=== PATIENT | female | born 1990 | race African-American/Black ===

== ENCOUNTER 2016-06-10 09:59 | Emergency (ER) | payer MEDICAID, OTHER ==
[2016-06-10 10:28] VITALS: BP 138/71
== END 2016-06-10 15:15 | disposition left against medical advice (07) ==
LOC: ED 09:59
DX: R11.0 Nausea (principal); R19.7 Diarrhea, unspecified; Z53.21 Procedure and treatment not carried out due to patient leaving prior to being seen by health care provider

== ENCOUNTER 2016-06-19 12:02 | Emergency (ER) | payer OTHER ==
[2016-06-19] MEDS ORDERED: Ibuprofen TAB* 600 MG PO ONE (13:29)
--- NOTE | 2016-06-19 15:24 | ED ---
Shaq Musa Claudia, scribed for Shi Mueller MD on 06/19/16 at 1324 . Breast Complaint - HPI Summary HPI Summary: 26 year old female presents to the ED wiht palpable tender lump in her right breast. Pt notes it has progressively gotten larger and more painful in the past few months (about 2). Pt notes she did breast feed her daughter for about 3-4 weeks over a year ago. Pt denies any fever or redness. Pt notes the pain radiates to her right axilla. - History of Current Complaint Breast Chief Complaint: Right, Palpable Lump Onset/Duration: Started Weeks Ago, Still Present Timing: Constant Breast Pain Radiates To: Axilla - right - Allergy/Home Medications Allergies/Adverse Reactions: Allergies Allergy/AdvReac Type Severity Reaction Status Date / Time Fluconazole [From Diflucan] Allergy Intermediate Nausea And Verified 06/19/16 12 :11 Vomiting Metronidazole [From Flagyl] Allergy Intermediate Hives Verified 06/19/16 12:11 Bee Venom Allergy Swelling Verified 06/19/16 12:11 PMH/Surg Hx/FS Hx/Imm Hx Previously Healthy: Yes Endocrine/Hematology History: Reports: Hx Thyroid Disease, Hx Anemia Denies: Hx Anticoagulant Therapy, Hx Blood Disorders, Hx Blood Transfusions, Hx Diabetes Cardiovascular History: Denies: Hx Congestive Heart Failure, Hx Deep Vein Thrombosis, Hx Hypertension , Hx Myocardial Infarction, Hx Pacemaker/ICD Respiratory History: Reports: Hx Asthma - no inhaler use x1yr Denies: Hx Chronic Obstructive Pulmonary Disease (COPD), Hx Lung Cancer, Hx Pneumonia, Hx Pulmonary Embolism GI History: Denies: Hx Gall Bladder Disease, Hx Gastrointestinal Bleed, Hx Ulcer, Hx Urosepsis History: Denies: Hx Kidney Infection, Hx Kidney Stones, Hx Renal Disease, Other Problems/Disorders Sensory History: Reports: Hx Contacts or Glasses - uncorrected vision Opthamlomology History: Reports: Hx Contacts or Glasses - uncorrected vision Neurological History: Denies: Hx Dementia, Hx Migraine, Hx Seizures, Hx Transient Ischemic Attacks (TIA) Psychiatric History: Reports: Hx Anxiety, Hx Depression - On no medications for this. She has no suicidal or homicidal thoughts. Denies: Hx Panic Disorder, Hx Schizophrenia, Hx Bipolar Disorder, Other Psychiatric Issues/Disorders - Surgical History Surgery Procedure, Year, and Place: (2). polyps removed from uterus. RT BREAST BIOPSY - Immunization History Date of Tetanus Vaccine: up to date per pt. Infectious Disease History: No Infectious Disease History: Denies: Hx Clostridium Difficile, Hx Hepatitis, Hx Human Immunodeficiency Virus (HIV), Hx of Known/Suspected MRSA, Hx Shingles, Hx Tuberculosis, Hx Known/ Suspected VRE, Hx Known/Suspected VRSA, History Other Infectious Disease, Traveled Outside the [place] in Last 30 Days - Family History Known Family History: Positive: Hypertension, Diabetes Negative: Blood Disorder - Social History Lives: With Family Alcohol Use: None Hx Substance Use: No Substance Use Type: Reports: None Hx Tobacco Use: No Smoking Status (MU): Never Smoked Tobacco Have You Smoked in the Last Year: No Review of Systems Negative: Fever Eyes: Negative ENT: Negative Cardiovascular: Negative Respiratory: Negative Gastrointestinal: Negative Genitourinary: Negative Musculoskeletal: Negative Positive: Other - palpable lump in right breast Neurological: Negative Psychological: Normal All Other Systems Reviewed And Are Negative: Yes Physical Exam Triage Information Reviewed: Yes Vital Signs On Initial Exam: Initial Vitals Temp Pulse Resp BP Pulse Ox 98.1 F 90 18 125/83 98 06/19/16 12:08 06/19/16 12:08 06/19/16 12:08 06/19/16 12:08 06/19/16 12:08 Vital Signs Reviewed: Yes Appearance: Positive: Well-Appearing, No Pain Distress Skin: Positive: Warm, Skin Color Reflects Adequate Perfusion, Dry, Other - At 11o clock in right breast 2 cm in circumference lump that is more hard and tender to palpate Eyes: Positive: EOMI, KISHAN ENT: Positive: Pharynx normal, TMs normal Neck: Positive: Supple, Nontender Respiratory/Lung Sounds: Positive: Clear to Auscultation, Breath Sounds Present. Negative: Rales, Rhonchi, Wheezes Cardiovascular: Positive: RRR. Negative: Murmur, Rub Abdomen Description: Positive: Nontender, Soft Bowel Sounds: Positive: Present Musculoskeletal: Positive: Strength/ROM Intact. Negative: Edema Left, Edema Right Neurological: Positive: Sensory/Motor Intact, Alert, Oriented to Person Place, Time, CN Intact II-III Psychiatric: Positive: Affect/Mood Appropriate Diagnostics - Vital Signs Vital Signs Temp Pulse Resp BP Pulse Ox 06/19/16 12:08 98.1 F 90 18 125/83 98 - Laboratory Lab Statement: Any lab studies that have been ordered have been reviewed, and results considered in the medical decision making process. Breast Pain Course/Dx - Course Course Of Treatment: call from Dr. Bailey- solid mass in right breast. follow up with surgery for biopsy - Diagnoses Provider Diagnoses: Breast mass, right Discharge - Discharge Plan Condition: Stable Disposition: OTHER Discharge Disposition Comment: SIGNOUT A SHIFT CHANGE. Referrals: No Primary Care Phys,NOPCP [Primary Care Provider] - The documentation as recorded by the Shaq crespo Claudia accurately reflects the service I personally performed and the decisions made by me, Shi Mueller MD.
--- NOTE | 2016-06-19 15:26 | RAD ---
Indication: Mass in the right breast Real-time sonography of the right breast was performed. There is a bilobed solid lesion in the right breast at 9 to 10:00 position approximately 4 cm from the nipple. This measures 2.7 x 1.4 x 2.5 cm. Flow is noted. The margins of are slightly lobulated and biopsy of this lesion is suggested. IMPRESSION: Solid lobulated lesion at the 9 to 10:00 position for which biopsy is suggested. ACR BI-RADS: 4, suspicious Dr. Mueller was notified of the results at 1522 hours.
[2016-06-19 15:40] VITALS: BP 120/62
== END 2016-06-19 15:38 | disposition home or self-care (01) ==
LOC: ED 12:02
DX: N63 Unspecified lump in breast (principal)
CPT/HCPCS: 99282; A9270-GY

== ENCOUNTER 2016-07-19 11:17 | Day surgery (SDC) | payer OTHER ==
--- NOTE | 2016-07-14 17:44 | HP ---
ADMISSION HISTORY AND PHYSICAL: DATE OF ADMISSION: 07/19/16 ATTENDING SURGEON: Hussain Jacobo MD (FELIPE Mustafa dictating) PRESCRIPTION CLERK COMPLAINT: Right breast mass. HISTORY OF PRESENT ILLNESS: This is a 26-year-old generally healthy female who has a history of a right breast mass 2 years ago for which she underwent imaging and eventually a core biopsy, which was apparently benign. She states that the mass then disappeared. She is approximately 5 months and beginning about 3 months ago, noted return of a mass in the breast, which was now painful, particularly with movement and/or pressure. She also has noticed some green bloody discharge. She was nursing only for about a week and is not currently lactating. She underwent ultrasound on 06/22/16, which showed 3 hypoechoic masses in the right breast, the dominant one being at 10 o'clock position and corresponding to the palpable lump. There were 2 additional masses , each less than or equal to a centimeter in size, both at the 12 o'clock position, one of them 1 cm and the other 4 cm from the nipple. These have not been symptomatic. She was seen in the office by Dr. Jacobo on 07/01/16. By his exam, there was a dominant lesion in the 12 o'clock position, measuring approximately 2 x 2 cm that was irregular, lobular, mobile, and tender. There were no palpable masses in the left breast and there was no palpable lymphadenopathy in the axillary or supraclavicular regions. Fine- needle aspiration was performed of the dominant 10 o'clock right breast mass, which was returned as consistent with fibroadenoma. Dr. Jacobo has discussed with her the indications for surgery, the risks, benefits, and alternatives. She would like to proceed as scheduled with the excision of the right breast mass. There is a family history of breast cancer in a maternal aunt. PAST MEDICAL HISTORY: Anxiety and depression. No other significant active or past medical issues. PAST SURGICAL HISTORY: Includes x2 and excision or ablation of uterine polyps. CURRENT MEDICATIONS: Fluoxetine 40 mg once daily. ALLERGIES: DIFLUCAN and FLAGYL (one has caused hives, the other nausea and vomiting, the patient is unsure which side effects for which drug). FAMILY HISTORY: Negative for anesthesia problems, bleeding, or clotting disorders. SOCIAL HISTORY: The patient has 2 children. She denies use of tobacco. She drinks 2 alcoholic drinks per week and denies other recreational drug use. REVIEW OF SYSTEMS: General: No recent constitutional symptoms or acute illnesses. Cardiovascular: No chest pain, palpitations, history of hypertension , or heart murmur. Respiratory: No history of asthma, chronic cough, or shortness of breath. GI: No problems reported. : No problems reported. HEPATOLOGY PHYSICIAN : Pelvic exam and Pap smear done within the past month, reportedly normal. Otherwise per HPI. Endocrine: No diabetes or thyroid dysfunction. PHYSICAL EXAMINATION GENERAL: A well-nourished, obese female, in no acute distress. VITAL SIGNS: Height 61 inches, weight 160 pounds, and vital signs per nursing. SKIN: Warm and dry. No suspicious rashes or lesions. HEENT: Pupils equal and round, reactive. EOMs intact. No conjunctival pallor. Oropharynx: Mucous membranes moist. Teeth in good repair. No intraoral lesions. NECK: No lymphadenopathy, thyromegaly, or masses. No supraclavicular lymphadenopathy. LUNGS: Clear to auscultation. No wheezes. HEART: Regular rate and rhythm. No murmur. BREASTS: Exam by PA student confirms presence of a mass in the right breast corresponding to the imaging and consistent with fibroadenoma. No other palpable masses noted. ABDOMEN: Soft and nontender to palpation. No masses or organomegaly. GENITALIA: Not done. RECTUM: Not done. BACK: No spinous process or CVA tenderness. EXTREMITIES: No edema. NEUROLOGICAL: Grossly intact. IMPRESSION: Right breast mass. PLAN/RECOMMENDATIONS: Excision right breast mass. FELIPE MUSTAFA CC: [facility]; [facility]* [id number]/[facility] #: [id number] JERMAIN
[~2016-07-19 11:17] MED LIST: Buffered Lidocaine 1% SYR 3ML* 3 ML/SYR SYRINGE INTRADERM ONE; Famotidine IV* 10 MG/ML 2 ML (20 mg) IV ONE; Morphine INJ* 2 MG/ML 1 ML CARPUJECT IV PRN; PROCHLORPERAZINE INJ 5 MG/ML 2 ML VIAL IV PRN; fentaNYL* 50 MCG/ML 2 ML VIAL (100 MCG VIAL) IV PRN; oxyCODONE/Acetamin 5/325 MG* TAB PO PRN
[2016-07-19] MEDS ORDERED: Famotidine IV* 10 MG/ML 2 ML (20 mg) ONE (11:30)
[2016-07-19 11:39] LABS: Manual Entry Verification HAN0055; UR Preg Internal Control QC Line Present
[2016-07-19] MEDS ORDERED: KETAMINE HCL* 50 MG/ML 10 ML VIAL ONE (12:54)
[2016-07-19] MEDS ORDERED: Midazolam* 1 MG/ML 5 ML VIAL (5 MG) ONE (12:54)
[2016-07-19] MEDS ORDERED: fentaNYL* 50 MCG/ML 2 ML VIAL (100 MCG VIAL) ONE (12:54)
[2016-07-19] MEDS ORDERED: Lidocaine 1% INJ* 10 MG/ML 30 ML SDV ONE (13:47)
[2016-07-19] MEDS ORDERED: Bupivacaine 0.5% W/EPI SDV* 30 ML VIAL ONE (13:47)
[2016-07-19] MEDS ORDERED: Propofol* 10 MG/ML 20 ML BTL IV PUSH ONE (14:11)
[2016-07-19] MEDS ORDERED: Ketorolac INJ* 30 MG/ML 1 ML VIAL ONE (14:11)
[2016-07-19] MEDS ORDERED: Lidocaine 2% PF * 5 ML VIAL ONE (14:11)
[2016-07-19] MEDS ORDERED: Dexamethasone IV* 4 MG/ML 1 ML (4 MG) ONE (14:11)
[2016-07-19] MEDS ORDERED: Ondansetron INJ* 2 MG/ML VIAL ONE (14:11)
[2016-07-19 15:31] VITALS: BP 108/55
--- NOTE | 2016-07-22 04:18 | OP ---
DATE OF OPERATION: 07/19/16 - [facility] DATE OF : 89 SURGEON: Hussain Jacobo MD OYSTER SORTER: None. ANESTHESIOLOGIST: Villa Price MD ANESTHESIA: Local MAC. PRE-OP DIAGNOSIS: Right breast mass. POST-OP DIAGNOSIS: Right breast mass. OPERATIVE PROCEDURE: Excision of right breast mass. ESTIMATED BLOOD LOSS: Minimal. SPECIMEN: Right breast mass. COMPLICATIONS: None. COUNTS: Instrument, needle, and sponge counts were correct. DESCRIPTION OF PROCEDURE: The patient was brought to the operating room, placed on the table supine. Sequential compression devices were placed on both lower extremities. She was administered intravenous sedation. Her right breast and chest were prepped and draped in the usual sterile fashion. Time- out was performed. Local anesthetic was infiltrated into the right breast overlying the palpable mass in the upper right quadrant. A curvilinear incision was created and the subcutaneous tissues were divided. The breast mass was identified. It was elevated and dissected free using the cautery. Once the mass was completely excised, hemostasis was assured. The wound was closed in two layers with 3-0 Polysorb and subcutaneous tissues, 4-0 Monocryl for the skin in a running subcuticular fashion. Steri-Strips were applied. The patient tolerated the procedure well, was awakened and transferred to Recovery in stable condition. CC: [facility]; [facility] * [id number]/[facility] #: [id number] JERMAIN
== END 2016-07-19 15:56 | disposition home or self-care (01) ==
LOC: OR 11:17
PROVIDERS: ATTEND Surgery
DX: D24.1 Benign neoplasm of right breast (principal); J45.909 Unspecified asthma, uncomplicated
CPT/HCPCS: 81025; 88307; J1100; J1885; J2250; J2405; J2704; J3010

== ENCOUNTER 2016-08-16 09:18 | Emergency (ER) | payer OTHER ==
--- NOTE | 2016-08-16 10:51 | UC ---
Ear Complaint HPI - HPI Summary HPI Summary: ONSET OF RIGHT EAR PAIN YESTERDAY. TODAY HEARING IS MUTED. NO DRAINAGE. NO FEVER. ONSET OF NASAL CONGESTION TODAY. ALSO REQUESTING A TEST. TOOK 2 HOME TESTS - ONE WAS POS, ONE WAS NEG. IS ABOUT 6 DAYS LATE FOR MENSES. HAS BEEN HAVING UNPROTECTED SEX WITH HER PARTNER. JUST GAVE 01/21/16. - History of Current Complaint Chief Complaint: UCEar Stated Complaint: EAR PAIN Time Seen by Provider: 08/16/16 10:50 Hx Obtained From: Patient, Family/Constitutional Law Professor - MOM Hx Last Menstrual Period: end of june 2016 Onset/Duration: Gradual Onset, Lasting Hours, Still Present Severity Initially: Moderate Severity Currently: Moderate Pain Intensity: 8 Pain Scale Used: 0-10 Numeric Aggravating Factors: Nothing Alleviating Factors: Nothing Associated Signs/Symptoms: Positive: Hearing Loss, URI Symptoms. Negative: Discharge, Foreign Body Sensation, Trauma to Ear, Swelling @ - Allergies/Home Medications Allergies/Adverse Reactions: Allergies Allergy/AdvReac Type Severity Reaction Status Date / Time Fluconazole [From Diflucan] Allergy Intermediate Nausea And Verified 07/19/16 11 :51 Vomiting Metronidazole [From Flagyl] Allergy Intermediate Hives Verified 07/19/16 11:51 Bee Venom Allergy Swelling Verified 07/19/16 11:51 PMH/Surg Hx/FS Hx/Imm Hx Endocrine History Of: Reports: Thyroid Disease - no longer on med, resolved Denies: Diabetes, Hyperthyroidism, Hypothyroidism, Dyslipidemia Cardiovascular History Of: Denies: Cardiac Disorders, Hypertension, Pacemaker/ICD, Myocardial Infarction , Congestive Heart Failure, Atrial Fibrillation, Deep Vein Thrombosis, Bleeding Disorders Respiratory History Of: Reports: Asthma - prn med Denies: COPD, Bronchitis, Pneumonia, Pulmonary Embolism GI/ History Of: Denies: Gastroesophageal Reflux, Ulcer, Gastrointestinal Bleed, Gall Bladder Disease, Kidney Stones, Diverticulitis, Renal Disease, Urosepsis Neurological History Of: Denies: TIA, CVA, Dementia, Seizures, Migraine Psychological History Of: Reports: Anxiety - on med, Depression - on med Denies: Bipolar Disorder, Schizophrenia, Post Traumatic Stress Disorder Cancer History Of: Denies: Lung Cancer, Colorectal Cancer, Breast Cancer, Prostate Cancer, Cervical Cancer Other History Of: Negative For: HIV, Hepatitis B, Hepatitis C, Anticoagulant Therapy - Surgical History Surgical History: Yes Surgery Procedure, Year, and Place: x2, 2011, 2015 - [facility] [place]. polyps removed from uterus 2013 - [facility] [place]. RT BREAST BIOPSY 2014 - [facility] [place] - Family History Known Family History: Positive: Hypertension, Diabetes Negative: Blood Disorder - Social History Alcohol Use: None Alcohol Amount: one wine per week Substance Use Type: None Smoking Status (MU): Never Smoked Tobacco Have You Smoked in the Last Year: No - Immunization History Most Recent Influenza Vaccination: not this year Most Recent Tetanus Shot: tetanus is up to date per patient Most Recent Pneumonia Vaccination: never Review of Systems Constitutional: Negative ENT: Ear Ache, Nasal Discharge Respiratory: Negative Cardiovascular: Negative Gastrointestinal: Negative All Other Systems Reviewed And Are Negative: Yes Physical Exam Triage Information Reviewed: Yes Appearance: Well-Appearing, No Pain Distress, Well-Nourished Vital Signs: Initial Vital Signs Temp 98.5 F 08/16/16 10:00 Pulse 68 08/16/16 10:00 Resp 18 08/16/16 10:00 BP 135/78 08/16/16 10:00 Pulse Ox 99 08/16/16 10:00 Vital Signs Reviewed: Yes Eyes: Positive: Conjunctiva Clear ENT: Positive: Hearing grossly normal, Pharynx normal, Other: - RIGHT TM DULL, ERYTHEMATOUS. LEFT TM NORMAL Neck: Positive: Supple, Nontender, No Lymphadenopathy Respiratory Exam: Normal Cardiovascular Exam: Normal Abdomen Description: Positive: Soft Musculoskeletal: Positive: No Edema Neurological: Positive: Alert Psychological: Positive: Age Appropriate Behavior Skin: Negative: rashes Diagnostics - Laboratory Diagnostic Studies Completed/Ordered: urine dip unremarkable. urine hcg neg Ear Complaint Course/Dx - Course Course Of Treatment: COUNSELED PT ON SAFER SEX PRACTICES TO PREVENT UNWANTED . ADVISED HER TO FOLLOW-UP WITH OB-SOLUTION ANALYST TO DISCUSS CONTRACEPTIVE OPTIONS. - Differential Dx/Diagnosis Provider Diagnoses: RIGHT AOM Discharge - Discharge Plan Condition: Stable Disposition: HOME Prescriptions: Amoxicillin CAP* [Amoxicillin 500 MG CAP*] 1,000 mg PO Q12H #28 cap Patient Education Materials: Otitis Media (ED) Additional Instructions: FOLLOW-UP WITH FLEET COORDINATOR VARINDER TO DISCUSS CONTRACEPTIVE OPTIONS. IN THE MEANTIME YOU MUST USE A BARRIER METHOD OF CONTRACEPTION TO PREVENT UNWANTED . CALL THE NUMBER BELOW FOR ASSISTANCE IN ESTABLISHING WITH A PCP An additional resource available to assist in finding the appropriate physician for your health care needs is the [facility] ([facility]). You may contact them by calling [phone].
[2016-08-16 11:47] VITALS: BP 125/78
== END 2016-08-16 11:43 | disposition home or self-care (01) ==
LOC: UCEAST 09:18
DX: H66.91 Otitis media, unspecified, right ear (principal); J45.909 Unspecified asthma, uncomplicated; Z88.3 Allergy status to other anti-infective agents; Z91.030 Bee allergy status
CPT/HCPCS: 81003; 84702; 99212; G0463

== ENCOUNTER 2016-08-30 11:43 | Emergency (ER) | payer OTHER ==
--- NOTE | 2016-08-30 13:47 | UC ---
Abdominal Pain Female HPI - HPI Summary HPI Summary: PT HERE WITH 2 DAYS OF RLQ PAIN. NO NAUSEA, NO FEVER. APPETITE HAS BEEN A BIT DECREASED. ALSO IS - NOT SURE HOW FAR ALONG SHE IS YET BUT LMP WAS 06/07. WAS UNPLANNED. FIRST OB APPT NOT UNTIL MID SEPTEMBER. - History of Current Complaint Chief Complaint: UCAbdominalPain Stated Complaint: PAIN ON SIDE PREG Time Seen by Provider: 08/30/16 13:36 Hx Obtained From: Patient Hx Last Menstrual Period: 06/07 Onset/Duration: Sudden Onset, Lasting Days, Still Present Timing: Constant Severity Initially: Mild Severity Currently: Mild Pain Intensity: 8 Pain Scale Used: 0-10 Numeric Location: Discrete At: RLQ Radiates: No Character: Cramping, Sharp Aggravating Factor(s): Nothing Alleviating Factor(s): Nothing Associated Signs and Symptoms: Positive: Negative Allergies/Adverse Reactions: Allergies Allergy/AdvReac Type Severity Reaction Status Date / Time Fluconazole [From Diflucan] Allergy Intermediate Nausea And Verified 07/19/16 11 :51 Vomiting Metronidazole [From Flagyl] Allergy Intermediate Hives Verified 07/19/16 11:51 Bee Venom Allergy Swelling Verified 07/19/16 11:51 PMH/Surg Hx/FS Hx/Imm Hx Endocrine History Of: Reports: Thyroid Disease - no longer on med, resolved Denies: Diabetes, Hyperthyroidism, Hypothyroidism, Dyslipidemia Cardiovascular History Of: Denies: Cardiac Disorders, Hypertension, Pacemaker/ICD, Myocardial Infarction , Congestive Heart Failure, Atrial Fibrillation, Deep Vein Thrombosis, Bleeding Disorders Respiratory History Of: Reports: Asthma - prn med Denies: COPD, Bronchitis, Pneumonia, Pulmonary Embolism GI/ History Of: Denies: Gastroesophageal Reflux, Ulcer, Gastrointestinal Bleed, Gall Bladder Disease, Kidney Stones, Diverticulitis, Renal Disease, Urosepsis Neurological History Of: Denies: TIA, CVA, Dementia, Seizures, Migraine Psychological History Of: Reports: Anxiety - on med, Depression - on med Denies: Bipolar Disorder, Schizophrenia, Post Traumatic Stress Disorder Cancer History Of: Denies: Lung Cancer, Colorectal Cancer, Breast Cancer, Prostate Cancer, Cervical Cancer Other History Of: Negative For: HIV, Hepatitis B, Hepatitis C, Anticoagulant Therapy - Surgical History Surgical History: Yes Surgery Procedure, Year, and Place: x2, 2010, 2015 - [facility] [place]. polyps removed from uterus 2013 - [facility] [place]. RT BREAST BIOPSY 2014 [facility] [place] - Family History Known Family History: Positive: Hypertension, Diabetes Negative: Blood Disorder - Social History Alcohol Use: None Alcohol Amount: one wine per week Substance Use Type: None Smoking Status (MU): Never Smoked Tobacco Have You Smoked in the Last Year: No - Immunization History Most Recent Influenza Vaccination: not this year Most Recent Tetanus Shot: tetanus is up to date per patient Most Recent Pneumonia Vaccination: never Review of Systems Constitutional: Negative Skin: Negative Respiratory: Negative Cardiovascular: Negative Gastrointestinal: Abdominal Pain All Other Systems Reviewed And Are Negative: Yes Physical Exam Triage Information Reviewed: Yes Appearance: Well-Appearing, No Pain Distress, Well-Nourished Vital Signs: Initial Vital Signs Temp 98.2 F 08/30/16 12:10 Pulse 78 08/30/16 12:10 Resp 16 08/30/16 12:10 BP 128/76 08/30/16 12:10 Pulse Ox 100 08/30/16 12:10 Vital Signs Reviewed: Yes Eyes: Positive: Conjunctiva Clear ENT: Positive: Hearing grossly normal Neck: Positive: Supple Respiratory Exam: Normal Cardiovascular Exam: Normal Abdomen Description: Positive: Soft, Other: - MILDY TENDER RLQ. NO REBOUND, RIGIDITY OR GUARDING. NEG OBTURATOR. EQUIVOCAL PSOAS SIGN. Negative: CVA Tenderness (R), CVA Tenderness (L), Distended, Guarding Bowel Sounds: Positive: Present Musculoskeletal: Positive: No Edema Neurological: Positive: Alert Psychological: Positive: Age Appropriate Behavior Skin: Negative: rashes Diagnostics - Laboratory Diagnostic Studies Completed/Ordered: URINE DIP UNREMARKABLE Abd Pain Female Course/Dx - Course Course Of Treatment: [facility] APPT TOMORROW AT 6:30PM TO DISCUSS OPTIONS. US TODAY PENDING TO CONFIRM IUP AND ESTABLISH GESTATIONAL AGE. IF US WNL FOR PT PREFERS CAREFUL OBSERVATION FOR RLQ PAIN. SIGNED OUT TO DR. TAPIA AT 2:55PM. - Differential Dx/Diagnosis Provider Diagnoses: RLQ PAIN/ Discharge - Discharge Plan Condition: Stable Disposition: OTHER Discharge Disposition Comment: SIGNED OUT TO DR. TAPIA - CHANGE OF SHIFT Referrals: No Primary Care Phys,NOPCP [Primary Care Provider] -
--- NOTE | 2016-08-30 15:59 | RAD ---
Indication: 11 weeks gestation based on June 10, 2016 LMP however negative test 3 weeks ago. Positive test today. Comparison: No relevant prior exams available on the [facility] [place] [facility]. Technique: Transvaginal pelvic ultrasound. Report: 0.16 cm mean diameter cystic structure appears to be within the endometrial cavity rather than eccentric within the endometrium as seen with a typical gestational sac. No definite pole or yolk sac evident. No compelling decidual reaction. No significant free pelvic fluid. 3.4 x 2.3 x 2.2 cm RIGHT ovary with documented vascular flow is remarkable for a 1.8 x 1.7 x 1.5 cm mildly thick walled avascular cystic structure with some inward directed margins and a reticulated internal architecture pattern of low level echoes most consistent with an involuting hemorrhagic cyst or corpus luteum. 3.0 x 1.5 x 1.9 cm LEFT ovary with documented vascular flow is unremarkable. No visualized extra ovarian adnexal region lesions evident. IMPRESSION: No definitive intrauterine gestational sac documented. The noted cystic structure within the endometrium is nonspecific and may represent a pseudosac rather than a true gestational sac. Nonetheless there is no suspicious extra ovarian adnexal region lesion. As ectopic is not excluded in absence of a documented IUP close clinical, beta-HCG, and sonographic follow-up is suggested as clinically indicated.
[2016-08-30 16:35] VITALS: BP 121/75
== END 2016-08-30 17:29 ==
LOC: UCEAST 11:43
DX: O26.899 Other specified pregnancy related conditions, unspecified trimester (principal); R10.31 Right lower quadrant pain; J45.909 Unspecified asthma, uncomplicated; F41.8 Other specified anxiety disorders; Z88.1 Allergy status to other antibiotic agents
CPT/HCPCS: 76817; 81003; 84702; 99212; G0463

== ENCOUNTER 2016-08-30 18:21 | Emergency (ER) | payer OTHER ==
[2016-08-30 18:28] VITALS: BP 139/63
--- NOTE | 2016-08-30 22:12 | ED ---
Wilfred Musa Erika, scribed for Servando Rodriguez MD on 08/30/16 at 1950 . GI/ HPI - HPI Summary HPI Summary: Patient is a 26-year-old female presenting to the ED with a CC of abdominal pain. Patient reports she is , with LNMP 06/12/2016. She states yesterday, she developed spotting, which has resolved. Today, she has had an intermittent suprapubic pain, which is aggravated by palpation, as well as a separate abdominal cramping. Patient came from [facility] after they did an US that did not show anything. A1. Patient reports she spotted during her last . - History of Current Complaint Chief Complaint: EDOBProblems Time Seen by Provider: 08/30/16 18:37 Stated Complaint: ABD PAIN/ Hx Obtained From: Patient Onset/Duration: Started Hours Ago, Atraumatic, Still Present Timing: Intermittent Current Severity: Moderate Pain Intensity: 8 Location of Pain: Suprapubic Additional Signs & Symptoms: Positive: Vaginal Bleeding, - 1, - 4, Para - 2 Aggravating Factor(s): Palpation - Allergy/Home Medications Allergies/Adverse Reactions: Allergies Allergy/AdvReac Type Severity Reaction Status Date / Time Fluconazole [From Diflucan] Allergy Intermediate Nausea And Verified 07/19/16 11 :51 Vomiting Metronidazole [From Flagyl] Allergy Intermediate Hives Verified 07/19/16 11:51 Bee Venom Allergy Swelling Verified 07/19/16 11:51 PMH/Surg Hx/FS Hx/Imm Hx Endocrine/Hematology History: Reports: Hx Thyroid Disease - no longer on med, resolved, Hx Anemia - in past, resolved Denies: Hx Anticoagulant Therapy, Hx Blood Disorders, Hx Blood Transfusions, Hx Diabetes Cardiovascular History: Denies: Hx Congestive Heart Failure, Hx Deep Vein Thrombosis, Hx Hypertension , Hx Myocardial Infarction, Hx Pacemaker/ICD Respiratory History: Reports: Hx Asthma - prn med Denies: Hx Chronic Obstructive Pulmonary Disease (COPD), Hx Lung Cancer, Hx Pneumonia, Hx Pulmonary Embolism GI History: Denies: Hx Gall Bladder Disease, Hx Gastrointestinal Bleed, Hx Ulcer, Hx Urosepsis History: Denies: Hx Kidney Infection, Hx Kidney Stones, Hx Renal Disease, Other Problems/Disorders Sensory History: Reports: Hx Contacts or Glasses - glasses Denies: Hx Hearing Aid Opthamlomology History: Reports: Hx Contacts or Glasses - glasses Neurological History: Denies: Hx Dementia, Hx Migraine, Hx Seizures, Hx Transient Ischemic Attacks (TIA) Psychiatric History: Reports: Hx Anxiety - on med, Hx Depression - on med Denies: Hx Panic Disorder, Hx Schizophrenia, Hx Bipolar Disorder, Other Psychiatric Issues/Disorders - Surgical History Surgery Procedure, Year, and [place] [facility] [place] [facility] [place] [facility] [place] Anesthesia Reactions: Yes - vomiting during - Immunization History Date of Tetanus Vaccine: up to date per pt. Infectious Disease History: No Infectious Disease History: Denies: Hx Clostridium Difficile, Hx Hepatitis, Hx Human Immunodeficiency Virus (HIV), Hx of Known/Suspected MRSA, Hx Shingles, Hx Tuberculosis, Hx Known/ Suspected VRE, Hx Known/Suspected VRSA, History Other Infectious Disease, Traveled Outside the in Last 30 Days - Family History Known Family History: Positive: Hypertension, Diabetes Negative: Blood Disorder - Social History Alcohol Use: None Alcohol Amount: one wine per week Hx Substance Use: No Substance Use Type: Reports: None Hx Tobacco Use: No Smoking Status (MU): Never Smoked Tobacco Have You Smoked in the Last Year: No Review of Systems Negative: Fever Positive: Abdominal Pain Genitourinary: Other - spotting All Other Systems Reviewed And Are Negative: Yes Physical Exam Triage Information Reviewed: Yes Vital Signs On Initial Exam: Initial Vitals Temp Pulse Resp BP Pulse Ox 98.1 F 58 17 139/63 100 08/30/16 18:23 08/30/16 18:23 08/30/16 18:23 08/30/16 18:23 08/30/16 18:23 Vital Signs Reviewed: Yes Appearance: Positive: Well-Appearing, No Pain Distress Skin: Positive: Warm, Skin Color Reflects Adequate Perfusion, Dry Head/Face: Positive: Normal Head/Face Inspection Eyes: Positive: Normal ENT: Positive: Normal ENT inspection Neck: Positive: Supple, Nontender Respiratory/Lung Sounds: Positive: Clear to Auscultation, Breath Sounds Present Cardiovascular: Positive: Bradycardia - at 58 bpm on triage Abdomen Description: Positive: Nontender, Soft Bowel Sounds: Positive: Present Musculoskeletal: Positive: Normal Neurological: Positive: Normal Psychiatric: Positive: Affect/Mood Appropriate Diagnostics - Vital Signs Vital Signs Temp Pulse Resp BP Pulse Ox 08/30/16 18:27 98.4 F 66 17 139/63 100 08/30/16 18:23 98.1 F 58 17 139/63 100 - Laboratory Lab Results: Lab Results 08/30/16 08/30/16 Range/Units 19:23 19:23 Beta HCG, Quant 12790.00 mIU/mL Blood Type O Positive Lab Statement: Any lab studies that have been ordered have been reviewed, and results considered in the medical decision making process. Re-Evaluation - Re-Evaluation First Eval Re-Evaluation Time: 20:55 Comment: Discussed plan for follow up GIGU Course/Dx - Course Course Of Treatment: Ms. Lara's U'S revealed a sac in the uterus and a quantitative HCG of 17k. She needs to be F/U in 2 days for a repeat HCG to distinguish between a missed AB and IUP. - Diagnoses Provider Diagnoses: Threatened in first trimester - Physician Notifications Discussed Care Of Patient With: Dr. Powers ([facility]) at 20:48 - discussed plan of care Discharge - Discharge Plan Condition: Stable Disposition: HOME Patient Education Materials: Threatened Miscarriage (ED) Referrals: Chase Powers MD [Medical Doctor] - Additional Instructions: Please follow up with [facility]. The documentation as recorded by the Wilfred crespo Erika accurately reflects the service I personally performed and the decisions made by me, Servando Rodriguez MD.
== END 2016-08-30 21:34 | disposition home or self-care (01) ==
LOC: ED 18:21
DX: O20.0 Threatened abortion (principal); F32.9 Major depressive disorder, single episode, unspecified; F41.9 Anxiety disorder, unspecified; O26.891 Other specified pregnancy related conditions, first trimester; J45.909 Unspecified asthma, uncomplicated; O99.341 Other mental disorders complicating pregnancy, first trimester
CPT/HCPCS: 36415; 84702; 86900; 86901; 99282

== ENCOUNTER 2017-04-17 10:57 | Emergency (ER) | payer OTHER ==
[2017-04-17 12:56] LABS: Urine Bilirubin Negative (Negative); Urine Glucose Negative (Negative); Urine Nitrite Negative (Negative)
[2017-04-17 13:03] LABS: Hematocrit 39 % (35-47); Hemoglobin 13.2 g/dl (12.0-16.0); Mean Corpuscular HGB Conc 34 g/dl (31-36); Mean Corpuscular Hemoglobin 32 pg (27-31); Mean Corpuscular Volume 94 fL (80-97); Mean Platelet Volume 10 um3 (7.4-10.4); Red Blood Count 4.13 10^6/ul (4.0-5.4); Red Cell Distribution Width 14 % (10.5-15); White Blood Count 5.6 10^3/ul (3.5-10.8)
[2017-04-17 13:22] LABS: Albumin 3.9 g/dL (3.2-5.2); BUN/Creatinine Ratio 12.7 (8-20); Calcium 8.9 mg/dL (8.6-10.3); EGFR Non-African American 88.7 (>60); Globulin 3.2 g/dL (2-4); Potassium 4.1 mmol/L (3.5-5.0); Total Bilirubin 0.5 mg/dL (0.2-1.0); Total Protein 7.1 g/dL (6.4-8.9)
--- NOTE | 2017-04-17 14:08 | ED ---
- HPI Summary HPI Summary: Patient presents to the ED with vaginal bleeding x 2 days with clotting. She has taken a test today which was positive. LMP 6-7 weeks ago. . Patient is otherwise healthy. Associated dizziness and 1 episode of passing out 2 days ago. Denies chest pain or SOB. Denies history of anemia. She states she has been dehydrated as well. Mild abdominal cramping described as period cramps. Denies N/V/C/D. Denies other symptoms + vaginal discharge and is requesting GC/Ch[place] only. Declines other STD testing. Denies fevers, sweat or chills. - History of Current Complaint Chief Complaint: EDOBProblems Stated Complaint: /CRAMPS & BLEEDING Time Seen by Provider: 04/17/17 12:39 Hx Obtained From: Patient Chief Complaint: Concern for Embryonic Dem Onset/Duration: Started Days Ago Timing: Constant Severity: Mild Current Severity: Mild Pain Intensity: 6 Character: None Associated Signs and Symptoms: Positive: Vaginal Bleeding or Discharge - Assessment Hx Now: Yes SAB: 1 IEA: 1 Hx Hysterectomy: No - Additional Pertinent History Maternal Blood Type and Rh: O Positive - Allergies/Home Medications Allergies/Adverse Reactions: Allergies Allergy/AdvReac Type Severity Reaction Status Date / Time Fluconazole [From Diflucan] Allergy Intermediate Nausea And Verified 07/19/16 11 :51 Vomiting Metronidazole [From Flagyl] Allergy Intermediate Hives Verified 07/19/16 11:51 Bee Venom Allergy Swelling Verified 07/19/16 11:51 PMH/Surg Hx/FS Hx/Imm Hx Previously Healthy: Yes Endocrine/Hematology History: Reports: Hx Thyroid Disease - no longer on med, resolved, Hx Anemia - in past, resolved Denies: Hx Anticoagulant Therapy, Hx Blood Disorders, Hx Blood Transfusions, Hx Diabetes Cardiovascular History: Denies: Hx Congestive Heart Failure, Hx Deep Vein Thrombosis, Hx Hypertension , Hx Myocardial Infarction, Hx Pacemaker/ICD Respiratory History: Reports: Hx Asthma - prn med Denies: Hx Chronic Obstructive Pulmonary Disease (COPD), Hx Lung Cancer, Hx Pneumonia, Hx Pulmonary Embolism GI History: Denies: Hx Gall Bladder Disease, Hx Gastrointestinal Bleed, Hx Ulcer, Hx Urosepsis History: Denies: Hx Kidney Infection, Hx Kidney Stones, Hx Renal Disease, Other Problems/Disorders Sensory History: Reports: Hx Contacts or Glasses - glasses Denies: Hx Hearing Aid Opthamlomology History: Reports: Hx Contacts or Glasses - glasses Neurological History: Denies: Hx Dementia, Hx Migraine, Hx Seizures, Hx Transient Ischemic Attacks (TIA) Psychiatric History: Reports: Hx Anxiety - on med, Hx Depression - on med Denies: Hx Panic Disorder, Hx Schizophrenia, Hx Bipolar Disorder, Other Psychiatric Issues/Disorders - Surgical History Surgery Procedure, Year, and Place: x2, 2010, [place] [facility] [place]. polyps removed [place] uterus 2013 [facility] [place]. RT BREAST BIOPSY 2014 [facility] [place] Hx Anesthesia Reactions: Yes - vomiting during - Immunization History Date of Tetanus Vaccine: up to date per pt. Hx Pertussis Vaccination: No Immunizations Up to Date: Unable to Obtain/Confirm Infectious Disease History: No Infectious Disease History: Denies: Hx Clostridium Difficile, Hx Hepatitis, Hx Human Immunodeficiency Virus (HIV), Hx of Known/Suspected MRSA, Hx Shingles, Hx Tuberculosis, Hx Known/ Suspected VRE, Hx Known/Suspected VRSA, History Other Infectious Disease, Traveled Outside the in Last 30 Days - Family History Known Family History: Positive: Hypertension, Diabetes Negative: Blood Disorder - Social History Occupation: Unemployed Lives: With Family Alcohol Use: None Alcohol Amount: one wine per week Hx Substance Use: No Substance Use Type: Reports: None Hx Tobacco Use: No Smoking Status (MU): Never Smoked Tobacco Have You Smoked in the Last Year: No Review of Systems Constitutional: Negative Negative: Fever, Chills, Fatigue Eyes: Negative Cardiovascular: Negative Respiratory: Negative Positive: Abdominal Pain Positive: discharge Musculoskeletal: Negative Skin: Negative Psychological: Normal All Other Systems Reviewed And Are Negative: Yes Physical Exam - Physical Exam Triage Information Reviewed: Yes Vital Signs Reviewed: Yes Appearance: Positive: Well-Appearing, Well-Nourished Skin: Positive: Skin Color Reflects Adequate Perfusion Head/Face: Positive: Normal Head/Face Inspection Eyes: Positive: EOMI, KISHAN, Conjunctiva Clear Neck: Positive: Supple, No Lymphadenopathy Respiratory/Lung Sounds: Positive: Clear to Auscultation, Breath Sounds Present Cardiovascular: Positive: RRR, Pulses are Symmetrical in both Upper and Lower Extremities Abdomen Description: Positive: Soft Musculoskeletal: Positive: Normal, Strength/ROM Intact Neurological: Positive: Speech Normal Psychiatric: Positive: Normal, Affect/Mood Appropriate AVPU Assessment: Alert Diagnostics - Vital Signs Vital Signs Temp Pulse Resp BP Pulse Ox 04/17/17 11:01 98.1 F 58 18 127/61 99 - Laboratory Lab Results: Lab Results 04/17/17 04/17/17 04/17/17 Range/Units 12:35 12:55 12:55 WBC 5.6 (3.5-10.8) 10^3/ul RBC 4.13 (4.0-5.4) 10^6/ul Hgb 13.2 (12.0-16.0) g/dl Hct 39 (35-47) % MCV 94 (80-97) fL MCH 32 H (27-31) pg MCHC 34 (31-36) g/dl RDW 14 (10.5-15) % Plt Count 193 (150-450) 10^3/ul MPV 10 (7.4-10.4) um3 Neut % (Auto) 60.5 (38-83) % Lymph % (Auto) 29.2 (25-47) % [place] % (Auto) 7.8 (1-9) % Eos % (Auto) 1.6 (0-6) % Baso % (Auto) 0.9 (0-2) % Absolute Neuts (auto) 3.4 (1.5-7.7) 10^3/ul Absolute Lymphs (auto) 1.6 (1.0-4.8) 10^3/ul Absolute Monos (auto) 0.4 (0-0.8) 10^3/ul Absolute Eos (auto) 0.1 (0-0.6) 10^3/ul Absolute Basos (auto) 0.1 (0-0.2) 10^3/ul Absolute Nucleated RBC 0.01 10^3/ul Nucleated RBC % 0.2 INR (Anticoag Therapy) (0.89-1.11) Sodium 135 (133-145) mmol/L Potassium 4.1 (3.5-5.0) mmol/L Chloride 105 (101-111) mmol/L Carbon Dioxide 25 (22-32) mmol/L Anion Gap 5 (2-11) mmol/L BUN 10 (6-24) mg/dL Creatinine 0.79 (0.51-0.95) mg/dL Est GFR ( Amer) 114.0 (>60) Est GFR (Non-Af Amer) 88.7 (>60) BUN/Creatinine Ratio 12.7 (8-20) Glucose 97 (70-100) mg/dL Lactic Acid (0.5-2.0) mmol/L Calcium 8.9 (8.6-10.3) mg/dL Total Bilirubin 0.50 (0.2-1.0) mg/dL AST 14 (13-39) U/L ALT 10 (7-52) U/L Alkaline Phosphatase 52 (34-104) U/L Total Protein 7.1 (6.4-8.9) g/dL Albumin 3.9 (3.2-5.2) g/dL Globulin 3.2 (2-4) g/dL Albumin/Globulin Ratio 1.2 (1-3) Beta HCG, Quant 288.66 mIU/mL Urine Color Yellow Urine Appearance Clear Urine pH 6.0 (5-9) Ur Specific [place] 1.021 (1.010-1.030) Urine Protein Negative (Negative) Urine Ketones Negative (Negative) Urine Blood Negative (Negative) Urine Nitrate Negative (Negative) Urine Bilirubin Negative (Negative) Urine Urobilinogen Negative (Negative) Ur Leukocyte Esterase Negative (Negative) Urine Glucose Negative (Negative) Blood Type Antibody Screen 04/17/17 04/17/17 04/17/17 Range/Units 12:55 12:55 12:55 WBC (3.5-10.8) 10^3/ul RBC (4.0-5.4) 10^6/ul Hgb (12.0-16.0) g/dl Hct (35-47) % MCV (80-97) fL MCH (27-31) pg MCHC (31-36) g/dl RDW (10.5-15) % Plt Count (150-450) 10^3/ul MPV (7.4-10.4) um3 Neut % (Auto) (38-83) % Lymph % (Auto) (25-47) % [place] % (Auto) (1-9) % Eos % (Auto) (0-6) % Baso % (Auto) (0-2) % Absolute Neuts (auto) (1.5-7.7) 10^3/ul Absolute Lymphs (auto) (1.0-4.8) 10^3/ul Absolute Monos (auto) (0-0.8) 10^3/ul Absolute Eos (auto) (0-0.6) 10^3/ul Absolute Basos (auto) (0-0.2) 10^3/ul Absolute Nucleated RBC 10^3/ul Nucleated RBC % INR (Anticoag Therapy) 1.02 (0.89-1.11) Sodium (133-145) mmol/L Potassium (3.5-5.0) mmol/L Chloride (101-111) mmol/L Carbon Dioxide (22-32) mmol/L Anion Gap (2-11) mmol/L BUN (6-24) mg/dL Creatinine (0.51-0.95) mg/dL Est GFR ( Amer) (>60) Est GFR (Non-Af Amer) (>60) BUN/Creatinine Ratio (8-20) Glucose (70-100) mg/dL Lactic Acid 0.6 (0.5-2.0) mmol/L Calcium (8.6-10.3) mg/dL Total Bilirubin (0.2-1.0) mg/dL AST (13-39) U/L ALT (7-52) U/L Alkaline Phosphatase (34-104) U/L Total Protein (6.4-8.9) g/dL Albumin (3.2-5.2) g/dL Globulin (2-4) g/dL Albumin/Globulin Ratio (1-3) Beta HCG, Quant mIU/mL Urine Color Urine Appearance Urine pH (5-9) Ur Specific [place] (1.010-1.030) Urine Protein (Negative) Urine Ketones (Negative) Urine Blood (Negative) Urine Nitrate (Negative) Urine Bilirubin (Negative) Urine Urobilinogen (Negative) Ur Leukocyte Esterase (Negative) Urine Glucose (Negative) Blood Type O Positive Antibody Screen Negative Result Diagrams: 04/17/17 12:55 04/17/17 12:55 Lab Statement: Any lab studies that have been ordered have been reviewed, and results considered in the medical decision making process. Course/Dx - Course Course Of Treatment: Labs OK. Discussed with patient treatment options and reasons of bleeding and clotting. Beta HCG less than 250 which is low for 6-7 week . Coupled with blood clots, provider has discussed the possibility of a spontaneous vs. complications with . D/t low HCG, unable to visualize a viable fetus. GC./olivia sent and will call with results. Will not treat until results are obtained. She is to follow up with PCP and referral is given for OBGYN. She is given an iron supplement for any acute blood loss and fatigue associated. - Differential Diagnosis/HQI/PQRI: Intrauterine , /Embryonic Demise - Diagnoses Provider Diagnoses: Vaginal bleeding Discharge - Discharge Plan Condition: Stable Disposition: HOME Prescriptions: Iron-Vitamin C 65/125(Nf) [Vitron-C (NF)] 1 tab PO DAILY #15 tab Patient Education Materials: Dizziness (ED) Referrals: No Primary Care Phys,NOPCP [Primary Care Provider] - Obi Lam MD [Medical Doctor] - Additional Instructions: Please follow up with OBGYN for re-evaluation Call office today We will call with any positive results of the gonorrhea/chlamydia test Drink plenty of water Iron is prescribed to you - take as directed This may cause constipation, so drink plenty of water and supplement with SENNA (otc) as needed
[2017-04-17 14:27] VITALS: BP 121/65
== END 2017-04-17 14:29 | disposition home or self-care (01) ==
LOC: ED 10:57
DX: N93.9 Abnormal uterine and vaginal bleeding, unspecified (principal); E07.9 Disorder of thyroid, unspecified; D64.9 Anemia, unspecified
CPT/HCPCS: 36415; 80053; 81003; 83605; 84702; 85025; 85610; 86850; 86900; 86901; 87491; 87591; 99282

== ENCOUNTER 2017-04-25 04:35 | Emergency (ER) | payer SELFPAY ==
[2017-04-25] MEDS ORDERED: Morphine INJ* 4 MG/ML 1 ML CARPUJECT IV ONE (06:19)
[2017-04-25 06:57] LABS: Hematocrit 35 % (35-47); Hemoglobin 12.2 g/dl (12.0-16.0); Mean Corpuscular HGB Conc 35 g/dl (31-36); Mean Corpuscular Hemoglobin 32 pg (27-31); Mean Corpuscular Volume 93 fL (80-97); Mean Platelet Volume 9 um3 (7.4-10.4); Red Blood Count 3.79 10^6/ul (4.0-5.4); Red Cell Distribution Width 13 % (10.5-15)
[2017-04-25 07:03] LABS: Urine Bacteria Absent (Absent); Urine Bilirubin Negative (Negative); Urine Glucose Negative (Negative); Urine Nitrite Negative (Negative)
[2017-04-25 07:13] LABS: Albumin 3.7 g/dL (3.2-5.2); BUN/Creatinine Ratio 13.7 (8-20); Calcium 8.7 mg/dL (8.6-10.3); EGFR African American 124.9 (>60); EGFR Non-African American 97.1 (>60); Globulin 2.9 g/dL (2-4); Potassium 3.9 mmol/L (3.5-5.0); Total Bilirubin 0.5 mg/dL (0.2-1.0); Total Protein 6.6 g/dL (6.4-8.9)
--- NOTE | 2017-04-25 07:39 | ED ---
Jim Musa Benjamin, scribed for Jaya Frias MD on 04/25/17 at 0654 . GI/ HPI - HPI Summary HPI Summary: 27yo female BIBA EMS for vaginal cramping and bleeding. Cramping is mostly in RLQ. Pt is , although exact weeks of unknown. LMP was February. Pt has hx of ovarian cyst, uterine tumor (with removal operation), c- sections, and miscarriage x2 (2009 and November,). Pt also has hx of STI. Pt denies fever, or vaginal discharge. Unknown if pt has fever, but pt felt hot. Appendix is still intact. - History of Current Complaint Chief Complaint: EDOBProblems Stated Complaint: POSS MISCARRIAGE Hx Obtained From: Patient Hx Last Menstrual Period: 06/07 Timing: Constant Severity: Moderate Current Severity: Moderate Vaginal Bleeding Description: Bright Red Pain Intensity: 98 Location of Pain: RLQ Pain Characteristics: Cramping Pain Radiates to: Back Associated Signs and Symptoms: Positive: Back Pain. Negative: Dysuria Additional Signs & Symptoms: Positive: Vaginal Bleeding Aggravating Factor(s): Nothing Alleviating Factor(s): Nothing - Allergy/Home Medications Allergies/Adverse Reactions: Allergies Allergy/AdvReac Type Severity Reaction Status Date / Time Fluconazole [From Diflucan] Allergy Intermediate Nausea And Verified 07/19/16 11 :51 Vomiting Metronidazole [From Flagyl] Allergy Intermediate Hives Verified 07/19/16 11:51 Bee Venom Allergy Swelling Verified 07/19/16 11:51 PMH/Surg Hx/FS Hx/Imm Hx Endocrine/Hematology History: Reports: Hx Thyroid Disease - no longer on med, resolved, Hx Anemia - in past, resolved Denies: Hx Anticoagulant Therapy, Hx Blood Disorders, Hx Blood Transfusions, Hx Diabetes Cardiovascular History: Denies: Hx Congestive Heart Failure, Hx Deep Vein Thrombosis, Hx Hypertension , Hx Myocardial Infarction, Hx Pacemaker/ICD Respiratory History: Reports: Hx Asthma - prn med Denies: Hx Chronic Obstructive Pulmonary Disease (COPD), Hx Lung Cancer, Hx Pneumonia, Hx Pulmonary Embolism GI History: Denies: Hx Gall Bladder Disease, Hx Gastrointestinal Bleed, Hx Ulcer, Hx Urosepsis History: Denies: Hx Kidney Infection, Hx Kidney Stones, Hx Renal Disease, Other Problems/Disorders Sensory History: Reports: Hx Contacts or Glasses - glasses Denies: Hx Hearing Aid Opthamlomology History: Reports: Hx Contacts or Glasses - glasses Neurological History: Denies: Hx Dementia, Hx Migraine, Hx Seizures, Hx Transient Ischemic Attacks (TIA) Psychiatric History: Reports: Hx Anxiety - on med, Hx Depression - on med Denies: Hx Panic Disorder, Hx Schizophrenia, Hx Bipolar Disorder, Other Psychiatric Issues/Disorders - Surgical History Surgery Procedure, Year, and Place: x2, 2011, 2016 - [facility] [place]. polyps removed from uterus 2013 - [facility] [place]. RT BREAST BIOPSY 2014 - [facility] [place] Hx Anesthesia Reactions: Yes - vomiting during - Immunization History Date of Tetanus Vaccine: up to date per pt. Infectious Disease History: No Infectious Disease History: Denies: Hx Clostridium Difficile, Hx Hepatitis, Hx Human Immunodeficiency Virus (HIV), Hx of Known/Suspected MRSA, Hx Shingles, Hx Tuberculosis, Hx Known/ Suspected VRE, Hx Known/Suspected VRSA, History Other Infectious Disease, Traveled Outside the in Last 30 Days - Family History Known Family History: Positive: Hypertension, Diabetes Negative: Blood Disorder - Social History Occupation: Employed Full-time, Employed Part-time Lives: With Family Alcohol Use: Occasionally Alcohol Amount: one wine per week Hx Substance Use: No Substance Use Type: Reports: None Hx Tobacco Use: No Smoking Status (MU): Never Smoked Tobacco Have You Smoked in the Last Year: No Review of Systems Constitutional: Negative Eyes: Negative ENT: Negative Cardiovascular: Negative Respiratory: Negative Positive: Abdominal Pain - RLQ. Negative: Vomiting, Diarrhea, Nausea Positive: other - vaginal bleeding Musculoskeletal: Negative Skin: Negative Neurological: Negative Psychological: Normal All Other Systems Reviewed And Are Negative: Yes Physical Exam - Summary Physical Exam Summary: Appearance: Well-appearing, Well-nourished Skin: Warm Eyes: Normal ENT: Normal Neck: Supple, nontender Respiratory: Clear to auscultation Cardiovascular: Normal Abdomen: Soft. RLQ tenderness without rebound or guarding. Bowel: Present Musculoskeletal: Normal, Strength/ROM Intact Neurological: Normal, A&Ox3 Psychiatric: Normal Triage Information Reviewed: Yes Vital Signs On Initial Exam: Initial Vitals Temp Pulse Resp BP Pulse Ox 98.3 F 62 18 130/58 98 04/25/17 04:48 04/25/17 04:48 04/25/17 04:48 04/25/17 04:48 04/25/17 04:48 Vital Signs Reviewed: Yes - Derrick Coma Scale Coma Scale Total: 15 Diagnostics - Vital Signs Vital Signs Temp Pulse Resp BP Pulse Ox 04/25/17 04:48 98.3 F 62 18 130/58 98 - Laboratory Lab Results: Lab Results 04/25/17 04/25/17 04/25/17 Range/Units 06:43 06:43 06:43 WBC 9.0 (3.5-10.8) 10^3/ul RBC 3.79 L (4.0-5.4) 10^6/ul Hgb 12.2 (12.0-16.0) g/dl Hct 35 (35-47) % MCV 93 (80-97) fL MCH 32 H (27-31) pg MCHC 35 (31-36) g/dl RDW 13 (10.5-15) % Plt Count 208 (150-450) 10^3/ul MPV 9 (7.4-10.4) um3 Neut % (Auto) 79.3 (38-83) % Lymph % (Auto) 13.2 L (25-47) % [place] % (Auto) 5.4 (1-9) % Eos % (Auto) 0.9 (0-6) % Baso % (Auto) 1.2 (0-2) % Absolute Neuts (auto) 7.1 (1.5-7.7) 10^3/ul Absolute Lymphs (auto) 1.2 (1.0-4.8) 10^3/ul Absolute Monos (auto) 0.5 (0-0.8) 10^3/ul Absolute Eos (auto) 0.1 (0-0.6) 10^3/ul Absolute Basos (auto) 0.1 (0-0.2) 10^3/ul Absolute Nucleated RBC 0 10^3/ul Nucleated RBC % 0 INR (Anticoag Therapy) 0.98 (0.77-1.02) APTT 29.7 (26.0-36.3) seconds Sodium 133 (133-145) mmol/L Potassium 3.9 (3.5-5.0) mmol/L Chloride 106 (101-111) mmol/L Carbon Dioxide 21 L (22-32) mmol/L Anion Gap 6 (2-11) mmol/L BUN 10 (6-24) mg/dL Creatinine 0.73 (0.51-0.95) mg/dL Est GFR ( Amer) 124.9 (>60) Est GFR (Non-Af Amer) 97.1 (>60) BUN/Creatinine Ratio 13.7 (8-20) Glucose 110 H (70-100) mg/dL Calcium 8.7 (8.6-10.3) mg/dL Total Bilirubin 0.50 (0.2-1.0) mg/dL AST 13 (13-39) U/L ALT 9 (7-52) U/L Alkaline Phosphatase 54 (34-104) U/L Total Protein 6.6 (6.4-8.9) g/dL Albumin 3.7 (3.2-5.2) g/dL Globulin 2.9 (2-4) g/dL Albumin/Globulin Ratio 1.3 (1-3) Beta HCG, Quant Pending Urine Color Urine Appearance Urine pH (5-9) Ur Specific Tarzan (1.010-1.030) Urine Protein (Negative) Urine Ketones (Negative) Urine Blood (Negative) Urine Nitrate (Negative) Urine Bilirubin (Negative) Urine Urobilinogen (Negative) Ur Leukocyte Esterase (Negative) Urine WBC (Auto) (Absent) Urine RBC (Auto) (Absent) Ur Squamous Epith Cells (Absent) Urine Bacteria (Absent) Urine Glucose (Negative) Blood Type Antibody Screen 04/25/17 04/25/17 Range/Units 06:43 06:43 WBC (3.5-10.8) 10^3/ul RBC (4.0-5.4) 10^6/ul Hgb (12.0-16.0) g/dl Hct (35-47) % MCV (80-97) fL MCH (27-31) pg MCHC (31-36) g/dl RDW (10.5-15) % Plt Count (150-450) 10^3/ul MPV (7.4-10.4) um3 Neut % (Auto) (38-83) % Lymph % (Auto) (25-47) % [place] % (Auto) (1-9) % Eos % (Auto) (0-6) % Baso % (Auto) (0-2) % Absolute Neuts (auto) (1.5-7.7) 10^3/ul Absolute Lymphs (auto) (1.0-4.8) 10^3/ul Absolute Monos (auto) (0-0.8) 10^3/ul Absolute Eos (auto) (0-0.6) 10^3/ul Absolute Basos (auto) (0-0.2) 10^3/ul Absolute Nucleated RBC 10^3/ul Nucleated RBC % INR (Anticoag Therapy) (0.77-1.02) APTT (26.0-36.3) seconds Sodium (133-145) mmol/L Potassium (3.5-5.0) mmol/L Chloride (101-111) mmol/L Carbon Dioxide (22-32) mmol/L Anion Gap (2-11) mmol/L BUN (6-24) mg/dL Creatinine (0.51-0.95) mg/dL Est GFR ( Amer) (>60) Est GFR (Non-Af Amer) (>60) BUN/Creatinine Ratio (8-20) Glucose (70-100) mg/dL Calcium (8.6-10.3) mg/dL Total Bilirubin (0.2-1.0) mg/dL AST (13-39) U/L ALT (7-52) U/L Alkaline Phosphatase (34-104) U/L Total Protein (6.4-8.9) g/dL Albumin (3.2-5.2) g/dL Globulin (2-4) g/dL Albumin/Globulin Ratio (1-3) Beta HCG, Quant Urine Color Yellow Urine Appearance Clear Urine pH 5.0 (5-9) Ur Specific Tarzan 1.024 (1.010-1.030) Urine Protein Negative (Negative) Urine Ketones Negative (Negative) Urine Blood 3+ H (Negative) Urine Nitrate Negative (Negative) Urine Bilirubin Negative (Negative) Urine Urobilinogen Negative (Negative) Ur Leukocyte Esterase Negative (Negative) Urine WBC (Auto) Trace(0-5/hpf) (Absent) Urine RBC (Auto) Trace(0-2/hpf) (Absent) Ur Squamous Epith Cells Present H (Absent) Urine Bacteria Absent (Absent) Urine Glucose Negative (Negative) Blood Type O Positive Antibody Screen Negative Result Diagrams: 04/25/17 06:43 04/25/17 06:43 Lab Statement: Any lab studies that have been ordered have been reviewed, and results considered in the medical decision making process. GIGU Course/Dx - Course Assessment/Plan: pending transvaginal ultrasound, pt care signed out to AM attending Dr. Bacon - Diagnoses Provider Diagnoses: Vaginal bleeding Discharge - Discharge Plan Condition: Stable Disposition: OTHER Discharge Disposition Comment: pt care signed out to AM attending Dr. Bacon Referrals: No Primary Care Phys,NOPCP [Primary Care Provider] - The documentation as recorded by the Jim crespo Benjamin accurately reflects the service I personally performed and the decisions made by me, Jaya Frias MD.
--- NOTE | 2017-04-25 09:18 | RAD ---
HISTORY: Vaginal bleeding COMPARISONS: None relevant TECHNIQUE: Multiple transverse and longitudinal ultrasound images were obtained of the pelvis using grayscale, color Doppler, and spectral Doppler imaging using the endovaginal transducer. FINDINGS: UTERUS: The uterus measures 10.2 x 5.8 x 6.4 cm. The uterus is normal in shape, size, contour, and echotexture. ENDOMETRIUM: No intrauterine gestation is identified. The endometrium is thickened.. The endometrium measures 2.2 cm in thickness. CUL-DE-SAC: There is a small amount of simple fluid within the cul-de-sac. This may be physiologic in a reproductive age female. RIGHT OVARY: The right ovary measures 3.7 x 3.8 x 2.6 cm. Normal arterial and venous waveforms are identifiable within the ovary on spectral Doppler imaging. There is a minimally comminuted 1.6 cm cyst of the right ovary. LEFT OVARY: The left ovary is not clearly visualized. BLADDER: The bladder is not well visualized. OTHER: None IMPRESSION: 1. NO INTRAUTERINE GESTATION IS IDENTIFIED. THE DIFFERENTIAL INCLUDES EARLY INTRAUTERINE GESTATION, MISSED , OR ECTOPIC . RECOMMEND CORRELATION WITH SERIAL BETA-HCG LEVELS AND FOLLOW-UP IMAGING. 2. THICKENED ENDOMETRIUM. 3. SMALL AMOUNT OF FLUID WITHIN THE PELVIC CUL-DE-SAC. 4. MINIMALLY COMPLICATED RIGHT OVARIAN CYST. 5. THE LEFT OVARY IS NOT VISUALIZED. 6. NO SONOGRAPHIC FEATURES OF TORSION. PLEASE NOTE THAT PARTIAL OR INTERMITTENT TORSION MAY BE SONOGRAPHICALLY NORMAL.
[2017-04-25 10:04] LABS: TSH (Thyroid Stimulating Horm) 1.49 mcIU/mL (0.34-5.60)
[2017-04-25 10:11] VITALS: BP 118/62
--- NOTE | 2017-04-25 17:16 | ED ---
James Musa Angela, scribed for Adeel Bacon MD on 04/25/17 at 0736 . Progress - Progress Note Progress Note: This pt was signed out by Dr. Frias, pending disposition, awaiting US transvaginal. This pt is a 27 y/o female, currently , [place] [facility] [place] vaginal bleeding since 04/15. Pt is unsure of how many weeks far along she is. She does not have an ObGyn currently. LMP 7-8 weeks ago. Physical Exam: VITAL SIGNS: Reviewed. GENERAL: Patient is a well-developed and nourished female who is lying comfortable in the stretcher. Patient is not in any acute respiratory distress. HEAD AND FACE: Normocephalic and atraumatic. EYES: PERRLA, EOMI x 2, No injected conjunctiva. EARS: Hearing grossly intact. Ear canals and tympanic membranes are WNL. MOUTH: Oropharynx within normal limits. NECK: Supple, trachea is midline, no adenopathy, no JVD. CHEST: Symmetric, no tenderness at palpation LUNGS: Clear to auscultation bilaterally. No wheezing or crackles. CVS: RRR, S1 and S2 present, no murmurs or gallops appreciated. ABDOMEN: Soft, non tender. No signs of distention. Positive bowel sounds. No rebound no guarding, and no masses palpated. No abdominal bruit or pulsations. EXTREMITIES: FROM in all major joints, no edema, no cyanosis or clubbing. NEURO: Alert and oriented x 3. No acute neurological deficits. Speech is normal. SKIN: Dry and warm MILK BOTTLER: Female classified advertising supervisor is present during the examination. External genitalia: within normal limits. No rashes, lesions or ecchymosis. Speculum exam: Cervical Os is closed. Slight amount of blood in the vault. No CMTs. All cultures were collected and send to the lab. Pt was discharged to home in stable condition with a diagnosis of threatened miscarriage. - Results/Orders Results/Orders: US Transvaginal, per radiologist: IMPRESSION: 1. No intrauterine gestation is identified. The differential includes early intrauterine gestation, missed , or ectopic . Recommend correlation with serial beta-HCG levels and follow-up imaging. 2. Thickened endometrium. 3. Small amount of fluid within the pelvic cul-de-sac. 4. Minimally complicated right ovarian cyst. 5. The left ovary is not visualized. 6. No sonographic features of torsion. Please note that partial or intermittent torsion may be sonographically normal. ED physician has reviewed this radiology report and agrees. Re-Evaluation - Re-Evaluation First Eval Re-Evaluation Time: 07:20 Comment: Pt reports some cramping now with movement. Course/Dx - Course Course Of Treatment: This pt is a 27 y/o female, currently , presenting [place] [facility] [place]/o vaginal bleeding since 04/15. Pt is unsure of how many weeks far along she is. She does not have an ObGyn currently. LMP 7-8 weeks ago. This pt was signed out by Dr. Frias to follow up intravaginal ultrasound. Test results without any significant abnormalities except for beta HCG of 2,648. US transvaginal shows 1. No intrauterine gestation is identified. The differential includes early intrauterine gestation, missed , or ectopic . Recommend correlation with serial beta-HCG levels and follow-up imaging. 2. Thickened endometrium. 3. Small amount of fluid within the pelvic cul-de-sac. 4. Minimally complicated right ovarian cyst. 5. The left ovary is not visualized. 6. No sonographic features of torsion. Please note that partial or intermittent torsion may be sonographically normal. In the pelvic exam, she had minimal vaginal bleeding. Therefore, I discussed the case with Dr. Hughes, who recommends for the pt to be discharged home and follow up in her office in the next 2 days. She recommends for the pt to have a beta HCG before she goes to her office. She was instructed to return to the ED for increased vaginal bleeding or pain. Pt understands and agrees. Pt is hemodynamically stable, alert and oriented x3. Pt was discharged to home in stable condition with a diagnosis of threatened miscarriage. - Diagnoses Provider Diagnoses: Threatened miscarriage - Provider Notifications Discussed Care Of Patient With: Liza Hughes Time Discussed With Above Provider: 09:25 Instructed by Provider To: Other - I discussed pt care with Dr. Hughes. She recommends to discharge the pt and follow up with he in her office in the next 48 hours. The documentation as recorded by the James crespo Angela accurately reflects the service I personally performed and the decisions made by me, Adeel Bacon MD.
== END 2017-04-25 10:22 | disposition home or self-care (01) ==
LOC: ED 04:35
DX: N93.9 Abnormal uterine and vaginal bleeding, unspecified (principal); R10.31 Right lower quadrant pain; N83.201 Unspecified ovarian cyst, right side; Z32.00 Encounter for pregnancy test, result unknown; F41.9 Anxiety disorder, unspecified; F39 Unspecified mood [affective] disorder; Z88.1 Allergy status to other antibiotic agents
CPT/HCPCS: 36415; 76817; 80053; 81003; 81015; 83605; 84443; 84702; 85025; 85610; 85730; 86850; 86900; 86901

== ENCOUNTER 2017-04-29 09:28 | Day surgery (SDC) | payer SELFPAY ==
[2017-04-29] MEDS ORDERED: Famotidine IV* 10 MG/ML 2 ML (20 mg) IV ONE (10:10)
[2017-04-29] MEDS ORDERED: Metoclopramide TAB* 10 MG PO ONE (10:10)
[2017-04-29] MEDS ORDERED: Buffered Lidocaine 0.9% SYRIN* 5 ML/SYR SYRINGE INTRADERM ONE (10:10)
[2017-04-29] MEDS ORDERED: Metoclopramide TAB* 10 MG ONE (10:18)
[2017-04-29] MEDS ORDERED: Famotidine IV* 10 MG/ML 2 ML (20 mg) ONE (10:18)
[2017-04-29 10:27] LABS: Hematocrit 35 % (35-47); Hemoglobin 12.3 g/dl (12.0-16.0); Mean Corpuscular HGB Conc 35 g/dl (31-36); Mean Corpuscular Hemoglobin 33 pg (27-31); Mean Corpuscular Volume 94 fL (80-97); Mean Platelet Volume 9 um3 (7.4-10.4); Red Blood Count 3.73 10^6/ul (4.0-5.4); Red Cell Distribution Width 13 % (10.5-15); White Blood Count 6.9 10^3/ul (3.5-10.8)
[2017-04-29] MEDS ORDERED: Ondansetron INJ* 2 MG/ML VIAL ONE (11:21)
[2017-04-29] MEDS ORDERED: Cisatracurium* 2 MG/ML MDV 5 ML ONE (11:21)
[2017-04-29] MEDS ORDERED: KETAMINE HCL* 50 MG/ML 10 ML VIAL ONE (11:21)
[2017-04-29] MEDS ORDERED: Midazolam* 1 MG/ML 10 ML VIAL (10 MG) ONE (11:21)
[2017-04-29] MEDS ORDERED: fentaNYL* 50 MCG/ML 2 ML VIAL (100 MCG VIAL) ONE (11:21)
[2017-04-29] MEDS ORDERED: Dexamethasone IV* 4 MG/ML 1 ML (4 MG) ONE (11:21)
[2017-04-29] MEDS ORDERED: Ketorolac INJ* 30 MG/ML 1 ML VIAL ONE (11:21)
[2017-04-29] MEDS ORDERED: Lidocaine 2% PF * 5 ML VIAL ONE (11:21)
[2017-04-29] MEDS ORDERED: Propofol* 10 MG/ML 20 ML BTL IV PUSH ONE (11:21)
[2017-04-29] MEDS ORDERED: Bupivacaine 0.5% SDV PF* 30 ML VIAL ONE (12:09)
[2017-04-29] MEDS ORDERED: Neostigmine Methylsulfate* 2 MG/2 ML SYRINGE ONE (12:33)
[2017-04-29] MEDS ORDERED: Glycopyrrolate IV* 0.2 MG/ML 1 ML VIAL ONE (12:33)
[2017-04-29] MEDS ORDERED: Levalbuterol 1.25MG/0.5ML NEB ONE (12:53)
[2017-04-29] MEDS ORDERED: oxyCODONE/Acetamin 5/325 MG* TAB PO PRN (13:26)
[2017-04-29] MEDS ORDERED: Levalbuterol 0.63MG/3ML NEB* UNIT OF USE INH PRN (13:26)
[2017-04-29] MEDS ORDERED: Ondansetron INJ* 2 MG/ML VIAL IV PRN (13:26)
[2017-04-29] MEDS ORDERED: fentaNYL* 50 MCG/ML 2 ML VIAL (100 MCG VIAL) IV PRN (13:26)
[2017-04-29 14:16] VITALS: BP 110/55
--- NOTE | 2017-04-30 00:53 | OP ---
CC: Dr. Chase Powers.* DATE OF OPERATION: 04/29/17 - [facility] DATE OF : 89 SURGEON: Obi Lam MD JEWEL BEARING GRINDER: Dr. Chase Powers. ANESTHESIOLOGIST: Chinedu Wu MD ANESTHESIA: General endotracheal tube. PRE-OP DIAGNOSIS: Right ectopic . POST-OP DIAGNOSIS: Right ectopic . OPERATIVE PROCEDURE: FINDINGS: On laparoscopy, the anterior bladder flap appeared normal. The cul- de- sac contained about 100 cc of blood. There was a right ectopic in the right fallopian tube in the isthmic portion with clot coming out of the fimbriated ends. The right ovary appeared normal. The left tube and ovary appeared normal. Liver surface was smooth. There was an omental adhesion to the anterior abdominal wall. COMPLICATIONS: None. ESTIMATED BLOOD LOSS: Minimal. DESCRIPTION OF PROCEDURE: The patient identified, procedure identified as a laparoscopy. The patient was taken to the operating room and was prepped and draped in the usual fashion in dorsal lithotomy position under general anesthesia. A small infraumbilical incision was made and a Veress needle was inserted through this. The abdomen was insufflated to 15 mmHg. The Veress needle was removed and the trocar was inserted with a Visiport under direct visualization. The above findings were noted. Trocar was removed from the sheath and laparoscope was inserted and the above findings were noted. A second trocar was inserted on the right abdominal side wall, 8 cm lateral to the umbilicus under direct visualization. The LigaSure was inserted through this and the omental adhesion was lysed. A third trocar was placed on the left abdominal side wall approximately 8 cm lateral to the umbilicus and a trocar was inserted under direct visualization. Copious irrigation was utilized and suctioned out. The right fallopian was grasped. The LigaSure was used to ligate and incise the mesosalpinx from the level of the fimbriated end all the way up to within a couple of centimeters of the cornual portion of the fallopian tube on that side excising the right ectopic completely along with the fallopian tube. EndoCatch bag was placed into the abdomen and the specimen was placed within the bag and this was brought out through the umbilical incision without difficulty. The trocar was re-inserted and the abdomen was inspected and copiously irrigated and suctioned out. Good hemostasis was verified in the sites. All instruments were removed from the abdomen. The abdomen was deflated of CO2. The umbilicus was then closed using 2-0 Polysorb in a simple fashion through the deep part of the incision and then the skin was closed using skin glue in all sites. Good hemostasis was verified. Sponge and sponge stick were removed from the vagina and the patient returned to recovery room in stable condition. [id number]/[facility] #: [id number] JERMAIN
== END 2017-04-29 14:43 | disposition home or self-care (01) ==
LOC: OR 09:28
PROVIDERS: ATTEND Obstetrics & Gynecology
DX: O00.101 Right tubal pregnancy without intrauterine pregnancy (principal); N93.9 Abnormal uterine and vaginal bleeding, unspecified; J45.909 Unspecified asthma, uncomplicated; F41.8 Other specified anxiety disorders; D64.9 Anemia, unspecified; N63.10 Unspecified lump in the right breast, unspecified quadrant
CPT/HCPCS: 36415; 85025; 86850; 86900; 86901; 88305; A9270-GY; J1100; J1885; J2250; J2405; J2704; J3010

== ENCOUNTER 2017-05-16 11:02 | Emergency (ER) | payer SELFPAY ==
[2017-05-16 13:13] VITALS: BP 114/79
== END 2017-05-16 14:22 | disposition left against medical advice (07) ==
LOC: ED 11:02
DX: R10.9 Unspecified abdominal pain (principal); Z53.21 Procedure and treatment not carried out due to patient leaving prior to being seen by health care provider
CPT/HCPCS: 99282

== ENCOUNTER 2017-05-21 15:51 | Emergency (ER) | payer SELFPAY ==
[2017-05-21 16:10] VITALS: BP 111/67
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
== END 2017-05-21 18:05 | disposition home or self-care (01) ==
LOC: UCEAST 15:51
DX: N89.8 Other specified noninflammatory disorders of vagina (principal); Z90.79 Acquired absence of other genital organ(s); Z88.1 Allergy status to other antibiotic agents; Z91.030 Bee allergy status
CPT/HCPCS: 81003; 87480; 87491; 87510; 87591; 87661; 99211; G0463

== ENCOUNTER 2017-05-22 15:55 | Emergency (ER) | payer SELFPAY ==
[2017-05-22 16:31] VITALS: BP 129/71
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
== END 2017-05-22 17:10 | disposition short-term general hospital (02) ==
LOC: UCEAST 15:55
DX: S09.90XA Unspecified injury of head, initial encounter (principal); S19.9XXA Unspecified injury of neck, initial encounter; S29.9XXA Unspecified injury of thorax, initial encounter; Y04.2XXA Assault by strike against or bumped into by another person, initial encounter; Y93.9 Activity, unspecified; Y92.511 Restaurant or cafe as the place of occurrence of the external cause; R11.0 Nausea; E66.9 Obesity, unspecified; Z88.1 Allergy status to other antibiotic agents
CPT/HCPCS: 99213; G0463

== ENCOUNTER 2017-05-22 17:30 | Emergency (ER) | payer SELFPAY ==
[2017-05-22] MEDS ORDERED: Acetaminophen TAB* 325 MG PO ONE (18:16)
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
[2017-05-22 19:19] VITALS: BP 126/68
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
[2017-05-22] MEDS ORDERED: Ibuprofen TAB* 800 MG PO ONE (19:32)
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
== END 2017-05-22 20:42 | disposition home or self-care (01) ==
LOC: ED 17:30
DX: S06.0X9A Concussion with loss of consciousness of unspecified duration, initial encounter (principal); S00.93XA Contusion of unspecified part of head, initial encounter; S43.401A Unspecified sprain of right shoulder joint, initial encounter; Y09 Assault by unspecified means; Y92.89 Other specified places as the place of occurrence of the external cause
CPT/HCPCS: 70450; 70486; 72100; 72125; 99282; A9270-GY

== ENCOUNTER 2017-10-13 15:34 | Emergency (ER) | payer OTHER ==
[2017-10-13 16:53] VITALS: BP 103/65
--- NOTE | 2017-10-13 18:03 | UC ---
Lower Extremity/Ankle HPI - HPI Summary HPI Summary: Patient is a 27-year-old female presenting to the with chief complaint of left ankle pain. She does not recall injuring the area. She endorses swelling to the area without ecchymosis. Endorses numbness and tingling in the ipsilateral foot which was worse this morning. Has been taking ibuprofen without relief. Denies any knee pain or pain to the toes. Pulses +2 intact bilaterally both pedally and posterior tibial. She is otherwise healthy and takes no medications. She is ambulating well, but with pain. - History of Current Complaint Chief Complaint: UCLowerExtremity Stated Complaint: FOOT INJURY Time Seen by Provider: 10/13/17 16:59 Hx Obtained From: Patient Hx Last Menstrual Period: 10/13/2017 ?: No Onset/Duration: Sudden Onset Severity Initially: Mild Severity Currently: Mild Pain Intensity: 6 Pain Scale Used: 0-10 Numeric Aggravating Factor(s): Standing, Ambulation Alleviating Factor(s): Rest Able to Bear Weight: Yes - Risk Factors Gout Risk Factors: Negative DVT Risk Factors: Negative Septic Arthritis Risk Factor: Negative - Allergies/Home Medications Allergies/Adverse Reactions: Allergies Allergy/AdvReac Type Severity Reaction Status Date / Time fluconazole [From Diflucan] Allergy Vomiting Verified 10/13/17 16:53 Latex, Natural Rubber Allergy Itching Verified 08/28/17 18:36 metronidazole [From Flagyl] Allergy Hives Verified 10/13/17 16:53 Home Medications: Home Medications Ibuprofen [Advil] 200 mg PO 10/13/17 [History] PMH/Surg Hx/FS Hx/Imm Hx Previously Healthy: Yes Other History Of: Negative For: HIV, Hepatitis B, Hepatitis C, Anticoagulant Therapy - Surgical History Surgical History: Yes Surgery Procedure, Year, and Place: x2, 2010, [place] - [facility] [place]. polyps removed from uterus 2013 - [facility] [place]. RT BREAST BIOPSY 2014 [facility] [place]. ECTOPIC pregnmancy, removed Apr 2017 - Family History Known Family History: Positive: Hypertension, Diabetes Negative: Blood Disorder - Social History Occupation: Employed Full-time Lives: With Family Alcohol Use: Rare Alcohol Amount: one wine per week Substance Use Type: None Smoking Status (MU): Never Smoked Tobacco Have You Smoked in the Last Year: No - Immunization History Most Recent Influenza Vaccination: not this year Most Recent Tetanus Shot: tetanus is up to date per patient Most Recent Pneumonia Vaccination: never Review of Systems Constitutional: Negative Skin: Negative Respiratory: Negative Cardiovascular: Negative Motor: Decreased ROM - d/t pain Neurovascular: Negative Musculoskeletal: Arthralgia - with swelling Neurological: Negative Is Patient Immunocompromised?: No All Other Systems Reviewed And Are Negative: Yes Physical Exam Triage Information Reviewed: Yes Appearance: Well-Appearing, No Pain Distress, Well-Nourished Vital Signs: Initial Vital Signs Temp 98.4 F 10/13/17 16:46 Pulse 57 10/13/17 16:46 Resp 16 10/13/17 16:46 BP 103/65 10/13/17 16:46 Pulse Ox 100 10/13/17 16:46 Vital Signs Reviewed: Yes Eye Exam: Normal Neck exam: Normal Neck: Positive: Supple, No Lymphadenopathy Respiratory Exam: Normal Respiratory: Positive: Chest non-tender, Lungs clear Cardiovascular Exam: Normal Cardiovascular: Positive: RRR Musculoskeletal: Positive: Strength Limited @ - left plantar flexion Neurological Exam: Normal Neurological: Positive: Alert Psychological: Positive: Normal Response To Family Skin Exam: Normal Lower Extremity Course/Dx - Course Course Of Treatment: During the course of treatment, the patient's evaluated for left ankle pain. Denies any known injury. X-ray obtained of the ankle. There is slight swelling just inferior to the lateral malleolus without ecchymosis. X-ray obtained which shows some lateral soft tissue swelling with no additional findings. I have Aron wrapped the area and encouraged swelling and ice. - Differential Dx/Diagnosis Differential Diagnosis/HQI/PQRI: Sprain, Strain, Tendonitis Provider Diagnoses: left ankle swelling Discharge - Sign-Out/Discharge Documenting (check all that apply): Discharge/Admit/Transfer - Discharge Plan Condition: Stable Disposition: HOME Patient Education Materials: Swollen Joint (ED) Referrals: Jl Malone MD [Medical Doctor] - No Primary Care Phys,NOPCP [Primary Care Provider] - Additional Instructions: Ibuprofen 600mg three times daily Elevate Keep the area bandaged for pain control Follow up with ortho if symptoms persist despite these practices - Billing Disposition and Condition Condition: STABLE Disposition: HOME
--- NOTE | 2017-10-13 18:09 | RAD ---
Indication: Posterior and lateral LEFT ankle pain for 3 days. Associated numbness. No preceding injury. Comparison: No relevant prior exams available on the [facility] [place] PACS. Technique: AP, mortise, and lateral views LEFT ankle. REPORT AND IMPRESSION: Normal articular alignment. Negative for fracture or osteochondral lesion. Preserved joint spaces. Mild lateral soft tissue swelling.
== END 2017-10-13 18:22 | disposition home or self-care (01) ==
LOC: UCEAST 15:34
DX: M25.472 Effusion, left ankle (principal); M25.572 Pain in left ankle and joints of left foot; R20.0 Anesthesia of skin; Z88.1 Allergy status to other antibiotic agents; Z91.040 Latex allergy status
CPT/HCPCS: 99211; G0463

== ENCOUNTER 2017-11-17 17:15 | Emergency (ER) | payer OTHER ==
--- NOTE | 2017-11-17 17:25 | UC ---
Throat Pain/Nasal Bill HPI - HPI Summary HPI Summary: 27 yo female presents with sore throat, generalized fatigue, and feeling hot and cold since yesterday. She tells me that her daughter was diagnosed with strep throat a few days ago. Pt thinks she may have it. Is able to eat and drink , but does have pain. Denies cough, SOB, chest pain, n/v, or rash. - History of Current Complaint Hx Obtained From: Patient Hx Last Menstrual Period: 10/13/2017 Onset/Duration: Gradual Onset Severity: Moderate Pain Intensity: 8 Pain Scale Used: 0-10 Numeric <Todd Huerta - Last Filed: 11/17/17 18:16> <Noe Clark - Last Filed: 11/17/17 18:36> - History of Current Complaint Stated Complaint: SORE THROAT Time Seen by Provider: 11/17/17 17:24 - Allergies/Home Medications Allergies/Adverse Reactions: Allergies Allergy/AdvReac Type Severity Reaction Status Date / Time fluconazole [From Diflucan] Allergy Vomiting Verified 11/17/17 17:24 Latex, Natural Rubber Allergy Itching Verified 11/17/17 17:24 metronidazole [From Flagyl] Allergy Hives Verified 11/17/17 17:24 PMH/Surg Hx/FS Hx/Imm Hx - Additional Past Medical History Additional PMH: None Other History Of: Negative For: HIV, Hepatitis B, Hepatitis C, Anticoagulant Therapy - Surgical History Surgical History: Yes Surgery Procedure, Year, and Place: x2, 2010, [place] [facility] [place] uterus 2013 - [facility] [place]. RT BREAST BIOPSY 2014 - [facility] [place]. ECTOPIC pregnmancy, removed Apr 2017 - Family History Known Family History: Positive: Hypertension, Diabetes Negative: Blood Disorder - Social History Occupation: Employed Full-time Lives: With Family Alcohol Use: Rare Alcohol Amount: one wine per week Substance Use Type: None Smoking Status (MU): Never Smoked Tobacco Have You Smoked in the Last Year: No - Immunization History Most Recent Influenza Vaccination: not this year Most Recent Tetanus Shot: tetanus is up to date per patient Most Recent Pneumonia Vaccination: never <Todd Huerta - Last Filed: 11/17/17 18:16> Review of Systems Constitutional: Fatigue Skin: Negative Eyes: Negative ENT: Sore Throat Respiratory: Negative Cardiovascular: Negative Gastrointestinal: Negative Neurological: Negative Psychological: Negative All Other Systems Reviewed And Are Negative: Yes <Todd Huerta - Last Filed: 11/17/17 18:16> Physical Exam - Summary Physical Exam Summary: GENERAL: NAD. WDWN. No pain distress. SKIN: No rashes, sores, lesions, or open wounds. HEENT: Head: AT/NC Eyes: Conjunctiva clear without inflammation or discharge. Ears: Hearing grossly normal. TMs intact, no bulging, erythema, or edema. Nose: Nasal mucosa pink and moist. NTTP maxillary and frontal sinus. Throat: Posterior oropharynx moderate erythema and 3+ tonsillar enlargement. No exudates. Uvula midline. No hoarse voice or muffled voice. NECK: Supple. Nontender. No lymphadenopathy. CHEST: CTAB. No r/r/w. No accessory muscle use. Breathing comfortably and in no distress. CV: RRR. Without m/r/g. Pulses intact. Brisk cap refill. NEURO: Alert. CN II-XII grossly intact. PSYCH: Age appropriate behavior. Triage Information Reviewed: Yes Vital Signs: Vital Signs: Temp Pulse Resp BP Pulse Ox 98.4 F 92 18 110/70 97 11/17/17 17:23 11/17/17 17:23 11/17/17 17:23 11/17/17 17:23 11/17/17 17:23 Laboratory Tests 11/17/17 17:34 Group A Strep Rapid Positive A <Todd Huerta - Last Filed: 11/17/17 18:16> Vital Signs: Initial Vital Signs Temp 98.4 F 11/17/17 17:23 Pulse 92 11/17/17 17:23 Resp 18 11/17/17 17:23 BP 110/70 11/17/17 17:23 Pulse Ox 97 11/17/17 17:23 <Noe Clark - Last Filed: 11/17/17 18:36> Throat Pain/Nasal Course/Dx - Course Course Of Treatment: POC strep positive. Amoxicillin - Differential Dx/Diagnosis Provider Diagnoses: Strep pharyngitis <Todd Huerta - Last Filed: 11/17/17 18:16> Discharge - Sign-Out/Discharge Documenting (check all that apply): Discharge/Admit/Transfer - Billing Disposition and Condition Condition: STABLE Disposition: Home <Todd Huerta - Last Filed: 11/17/17 18:16> - Billing Disposition and Condition Condition: STABLE Disposition: Home <Noe Clark - Last Filed: 11/17/17 18:36> - Discharge Plan Condition: Stable Disposition: HOME Prescriptions: Amoxicillin PO (*) [Amoxicillin 500 MG CAP*] 500 mg PO Q12H #20 cap Lidocaine 2% VISCOUS* [Xylocaine 2% Viscous*] 10 ml SWISH SWAL TID PRN #100 ml PRN Reason: Pain Patient Education Materials: Strep Throat (DC) Forms: *Work Release Referrals: No Primary Care Phys,NOPCP [Primary Care Provider] - Additional Instructions: If you develop a fever, shortness of breath, chest pain, new or worsening symptoms - please call your PCP or go to the ED. Per institutional requirements, I have reviewed the chart, however, I was not consulted specifically or made aware of this patient by the above midlevel provider. I did not personally evaluate, interact with , or disposition this patient.
[2017-11-17 17:37] VITALS: BP 110/70
== END 2017-11-17 17:54 | disposition home or self-care (01) ==
LOC: UCEAST 17:15
DX: J02.0 Streptococcal pharyngitis (principal); Z88.8 Allergy status to other drugs, medicaments and biological substances; Z91.040 Latex allergy status
CPT/HCPCS: 87651; 99212; G0463

== ENCOUNTER 2017-12-27 19:54 | Emergency (ER) | payer MEDICAID ==
[2017-12-27 20:12] VITALS: BP 94/59
--- NOTE | 2017-12-27 20:32 | UC ---
Complaint Female HPI - HPI Summary HPI Summary: This patient is a 27 year old F presenting to [facility] accompanied by daughter with a chief complaint of urinating stones that began 2 days ago. The patient rates the pain 10/10 in severity. Symptoms aggravated by urination. Symptoms alleviated by nothing. 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 Patient denies fever and chills. Pt reports she has peed out three stones, which are hard and yellow- brown. Pt reports she is concerned about a possible STI. - History Of Current Complaint Chief Complaint: UCGU Stated Complaint: BACK PAIN Time Seen by Provider: 12/27/17 20:08 Hx Obtained From: Patient Hx Last Menstrual Period: 12/12/17 ?: No Onset/Duration: Sudden Onset, Lasting Days, Still Present Timing: Constant Severity Initially: Severe Severity Currently: Severe Pain Intensity: 10 Pain Scale Used: 0-10 Numeric Character: Sharp Aggravating Factor(s): Urination Alleviating Factor(s): Nothing Associated Signs And Symptoms: Positive: Back Pain, Vaginal Discharge, Nausea - Allergies/Home Medications Allergies/Adverse Reactions: Allergies Allergy/AdvReac Type Severity Reaction Status Date / Time fluconazole [From Diflucan] Allergy Vomiting Verified 12/27/17 20:12 Latex, Natural Rubber Allergy Itching Verified 12/27/17 20:12 metronidazole [From Flagyl] Allergy Hives Verified 12/27/17 20:12 PMH/Surg Hx/FS Hx/Imm Hx Previously Healthy: No Endocrine History: Thyroid Disease Respiratory History: Asthma Other History Of: Negative For: HIV, Hepatitis B, Hepatitis C, Anticoagulant Therapy - Surgical History Surgical History: Yes Surgery Procedure, Year, and Place: x2, 2010, 2016 - [facility] – [place]. polyps removed from uterus 2013 - [facility] [place]. RT BREAST BIOPSY 2014 - [facility] [place]. ECTOPIC pregnmancy, removed Apr 2017 - Family History Known Family History: Positive: Hypertension, Diabetes Negative: Blood Disorder - Social History Occupation: Employed Full-time Lives: With Family Alcohol Use: Rare Alcohol Amount: one wine per week Substance Use Type: None Smoking Status (MU): Never Smoked Tobacco Have You Smoked in the Last Year: No - Immunization History Most Recent Influenza Vaccination: not this year Most Recent Tetanus Shot: tetanus is up to date per patient Most Recent Pneumonia Vaccination: never Review of Systems Constitutional: Other - Negative fever and chills Gastrointestinal: Nausea Genitourinary: Dysuria, Vaginal/Penile Discharge, Other - Positive vaginal odor Musculoskeletal: Other: - Positive low back pain All Other Systems Reviewed And Are Negative: Yes Physical Exam - Summary Physical Exam Summary: General: well-appearing, no pain distress Skin: warm, color reflects adequate perfusion, dry Head: normal Eyes: EOMI, KISHAN ENT: normal Neck: supple, nontender Respiratory: CTA, breath sounds present Cardiovascular: RRR Abdomen: soft, Mild tenderness to percussion bilateral flanks Bowel: present Pelvic Exam: Female RN Gema present. White discharge. Non tender on exam. Musculoskeletal: normal, strength/ROM intact Neurological: sensory/motor intact, A&O x3 Psychological: affect/mood appropriate Triage Information Reviewed: Yes Vital Signs: Initial Vital Signs Temp 98.3 F 12/27/17 20:07 Pulse 63 12/27/17 20:07 Resp 18 12/27/17 20:07 BP 94/59 12/27/17 20:07 Pulse Ox 99 12/27/17 20:07 Vital Signs Reviewed: Yes Diagnostics - Radiology CT Abdomen and Pelvis Radiology Interpretation Completed By: Radiologist - CT abdomen and pelvis reveals, per radiologist, no CT findings to correlate with patients symptomatology. Specifically no obstructing renal or ureteral calculi. ED physician has reviewed this radiology report. Complaint Female Dx - Course Course Of Treatment: DISCUSSED CT RESULTS WITH THE PATIENT; NO KIDNEY STONES OR OTHER PATHOLOGY FOUND. TREATED WITH ROCEPHIN 250MG IM, AZITHROMYCIN 1GM PO, DIFLUCAN 150MG PO AND FLAGYL 500MG PO BID X 7 DAYS. DISCUSSED HX OF ALLERGIC REACTIONS TO METRONIDAZOLE AND DIFLUCAN WHEN SHE WAS 18YO. THE PATIENT REPORTS ONE GAVE HER STOMACH UPSET; SHE FELT THIS WAS DUE TO TAKING THE MEDICINE ON AN EMPTY STOMACH. AT THE SAME TIME SHE HAD A FEW HIVES BUT, NO OTHER ALLERGIC REACTION SYMPTOMS. WE DISCUSSED USING VAGINAL METRONIDAZOLE AND CLOTRIMAZOLE. SHE STATED SHE COULD NOT BE SURE ONE OF THE MEDICATIONS GAVE HER THE HIVES AND SHE WISHES TO TAKE BOTH THE METRONIDAZOLE AND DIFLUCAN PO. F/U PMD; RECHECK SOONER IF WORSE. - Differential Dx/Diagnosis Provider Diagnoses: VAGINITIS. DYSURIA Discharge - Sign-Out/Discharge Documenting (check all that apply): Patient Departure - Discharge Plan Condition: Stable Disposition: HOME Prescriptions: metroNIDAZOLE [Flagyl 500 MG TAB] 500 mg PO BID #13 tab Patient Education Materials: Vaginitis (ED), Dysuria (ED) Referrals: [facility] [Outside] Additional Instructions: FOLLOW UP WITH YOUR DOCTOR. GET RECHECKED FOR ANY WORSENING OF YOUR CONDITION; PAIN, FEVER, YOU FEEL ILL OR QUESTIONS OR CONCERNS. - Billing Disposition and Condition Condition: STABLE Disposition: Home Attestation Statement Scribe Attestation: This is zak Talamantes documenting for attending Doc Forbes MD. User Type: Provider with Scribe Provider Attestation: The documentation recorded by the scribe accurately reflects the service I personally performed and the decisions made by me.
[2017-12-27] MEDS ORDERED: Fluconazole 100 MG TAB* TAB PO ONE (21:16)
[2017-12-27] MEDS ORDERED: cefTRIAXone VIAL(*) 250 MG VIAL IM ONE (21:17)
[2017-12-27] MEDS ORDERED: Azithromycin TAB* 250 MG PO ONE (21:17)
[2017-12-27] MEDS ORDERED: metroNIDAZOLE TAB* 250 MG PO ONE (21:17)
[2017-12-27] MEDS ORDERED: Lidocaine 1%* 5 ML VIAL INJ ONE (21:22)
--- NOTE | 2017-12-28 07:39 | RAD ---
INDICATION: Low back pain. Possible renal stone COMPARISON: CT abdomen pelvis May 31, 2009 TECHNIQUE: Noncontrast axial source images were acquired from the level hemidiaphragms to the symphysis pubis as part of CT imaging for renal stone. Lung bases: The lung bases are clear. Liver: The liver is normal in size. Noncontrast imaging shows no evidence of a hepatic mass or ductal dilatation. Gallbladder: There are no calcified gallstones. There is no evidence of wall thickening or pericholecystic fluid.. Spleen: The spleen is normal in size. The noncontrast CT appearance is normal. Pancreas: Noncontrast imaging shows no pancreatic mass or ductal dilitation. Adrenal glands: No masses are identified. Kidneys/Bladder: There is no evidence of nephrolithiasis or CT evidence of hydronephrosis. Noncontrast imaging shows no evidence of a renal mass. The bladder is unremarkable.. Adenopathy: There is no evidence of intraperitoneal or retroperitoneal adenopathy. Evaluation is limited without oral contrast. Fluid collections: There are no free or localized fluid collections. Vessels: The aorta and iliac vessels are normal in caliber. There are no significant atherosclerotic changes. The IVC appears normal Pelvic organs: The uterus and adnexa appear normal GI tract: Evaluation of the bowel is limited without oral contrast. The stomach, small bowel, and lower GI tract appear grossly normal. There are no obstructive findings. The appendix is visualized and appears normal. Soft tissues: No soft tissue abnormalities of the extraperitoneal abdomen or pelvis are identified. Osseous structures: There are no acute osseous findings. IMPRESSION: NO CT EVIDENCE OF UROLITHIASIS OR OTHER SPECIFIC CT ABNORMALITY.
== END 2017-12-27 21:46 | disposition home or self-care (01) ==
LOC: UCEAST 19:54
DX: N76.0 Acute vaginitis (principal); R30.0 Dysuria; R11.0 Nausea; Z88.1 Allergy status to other antibiotic agents; Z91.040 Latex allergy status; Z82.49 Family history of ischemic heart disease and other diseases of the circulatory system; Z83.3 Family history of diabetes mellitus
CPT/HCPCS: 74176; 81003; 84702; 87480; 87491; 87510; 87591; 87661; 96372; 99212; A9270-GY; G0463; J0696

== ENCOUNTER 2018-02-01 08:13 | Emergency (ER) | payer MEDICAID ==
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
[2018-02-01] MEDS ORDERED: Ondansetron ODT TAB* 4 MG PO ONE (09:17)
[2018-02-01] MEDS ORDERED: Ketorolac INJ* 60 MG/2 ML VIAL IM ONE (09:17)
--- NOTE | 2018-02-01 10:00 | RAD ---
HISTORY: head injury, vomiting COMPARISONS: May 22, 2017 TECHNIQUE: Multiple contiguous axial CT scans were obtained of the head without intravenous contrast. FINDINGS: HEMORRHAGE/INFARCT: There is no hemorrhage or acute infarct. MASSES/SHIFT: There is no mass or shift. EXTRA-AXIAL SPACES: There are no extra-axial fluid collections. SULCI AND VENTRICLES: The sulci and ventricles are normal in size and position for the patient's stated age. CEREBRUM: There are no focal parenchymal abnormalities. BRAINSTEM: There are no focal parenchymal abnormalities. CEREBELLUM: There are no focal parenchymal abnormalities. VESSELS: The vessels are grossly normal. PARANASAL SINUSES: The paranasal sinuses are clear. ORBITS: The orbits are unremarkable. BONES AND SOFT TISSUE: No bone or soft tissue abnormalities are noted. OTHER: None IMPRESSION: NO ACUTE INTRACRANIAL PATHOLOGY.
[2018-02-01 11:13] VITALS: BP 122/81
== END 2018-02-01 11:12 | disposition home or self-care (01) ==
LOC: ED 08:13
DX: S09.90XA Unspecified injury of head, initial encounter (principal); R11.2 Nausea with vomiting, unspecified; R51 Headache; H53.8 Other visual disturbances; W51.XXXA Accidental striking against or bumped into by another person, initial encounter; Y92.9 Unspecified place or not applicable
CPT/HCPCS: 70450; 96372; 99282; A9270-GY; J1885

== ENCOUNTER 2018-04-01 21:04 | Emergency (ER) | payer OTHER ==
[2018-04-01 21:12] VITALS: BP 129/80
--- NOTE | 2018-04-01 21:37 | UC ---
Complaint Female HPI - HPI Summary HPI Summary: 28 yo with no PMH c/o vaginal discharge with unpleasant smell, states every time after intercourse with boyfriend her ph is thrown out of balance, patient states flagyl is not effective in treating her BV. She states she has crampy low back pain but started spotting just now and is possibly her period. Denies chills fever flank pain or dyspareunia - History Of Current Complaint Chief Complaint: UCGU Stated Complaint: PERSONAL Time Seen by Provider: 04/01/18 21:31 Hx Obtained From: Patient Hx Last Menstrual Period: NOT SURE - ? 1 MONTH AGO ?: No Onset/Duration: Gradual Onset, Lasting Weeks Timing: Constant Severity Initially: Mild Severity Currently: Mild Pain Intensity: 4 Character: Dull Aggravating Factor(s): Movement Associated Signs And Symptoms: Positive: Vaginal Bleeding/Discharge - Risk Factors Ectopic Risk Factor: Negative Ovarian Torsion Risk Factor: Reproductive Age - Allergies/Home Medications Allergies/Adverse Reactions: Allergies Allergy/AdvReac Type Severity Reaction Status Date / Time fluconazole [From Diflucan] Allergy Vomiting Verified 04/01/18 21:12 Latex, Natural Rubber Allergy Itching Verified 04/01/18 21:12 PMH/Surg Hx/FS Hx/Imm Hx Previously Healthy: Yes Other History Of: Negative For: HIV, Hepatitis B, Hepatitis C, Anticoagulant Therapy - Surgical History Surgical History: Yes Surgery Procedure, Year, and [place] [facility] [place] [facility] [place] [facility] [place] ECTOPIC pregnmancy, removed Apr 2017 - Family History Known Family History: Positive: Hypertension, Diabetes Negative: Blood Disorder - Social History Alcohol Use: None Alcohol Amount: one wine per week Substance Use Type: None Smoking Status (MU): Never Smoked Tobacco Have You Smoked in the Last Year: No - Immunization History Most Recent Influenza Vaccination: not this year Most Recent Tetanus Shot: tetanus is up to date per patient Most Recent Pneumonia Vaccination: never Review of Systems All Other Systems Reviewed And Are Negative: Yes Genitourinary: Positive: Vaginal/Penile Discharge Musculoskeletal: Positive: Arthralgia, Myalgia Physical Exam Triage Information Reviewed: Yes Appearance: Well-Appearing, No Pain Distress, Well-Nourished Vital Signs: Initial Vital Signs Temp 98.1 F 04/01/18 21:07 Pulse 63 04/01/18 21:07 Resp 16 04/01/18 21:07 BP 129/80 04/01/18 21:07 Pulse Ox 100 04/01/18 21:07 Vital Signs Reviewed: Yes Eyes: Positive: Conjunctiva Clear ENT: Positive: Hearing grossly normal Neck: Positive: Supple, Nontender Respiratory: Positive: Chest non-tender Cardiovascular: Positive: Pulses Normal, Brisk Capillary Refill Abdomen Description: Positive: Nontender Bowel Sounds: Positive: Present Pelvic Exam: Positive: External Exam Normal, Speculum Exam Normal, Bimanual Exam Normal, No Cerv. Motion Tender, No Masses, Active Bleeding Musculoskeletal Exam: Normal Musculoskeletal: Positive: Strength Intact, ROM Intact, No Edema Neurological: Positive: Alert, Muscle Tone Normal Psychological: Positive: Age Appropriate Behavior Skin Exam: Normal Complaint Female Dx - Course Course Of Treatment: patient c/o malodorous vaginal discharge which does not respond to metronidazole, menstrual onset upon pantry goods maker exam , swabs for affirm and aptima obtained, will start clinda once menses have ceased, advised to use female condoms, f/u with PCP / pantry goods maker. STD screen obtained. - Differential Dx/Diagnosis Provider Diagnoses: STD screening. vaginitis Discharge - Sign-Out/Discharge Documenting (check all that apply): Patient Departure All imaging exams completed and their final reports reviewed: No Studies - Discharge Plan Condition: Stable Disposition: HOME Patient Education Materials: Vaginitis (ED), Clindamycin (Into the vagina), Female Condom Use (ED) Referrals: No Primary Care Phys,NOPCP [Primary Care Provider] - [facility] [place] [facility] [Outside] - Billing Disposition and Condition Condition: STABLE Disposition: Home
--- NOTE | 2018-04-02 18:48 | UC ---
- Progress Note Progress Note: 04/02/2018 Vaginal sample positive for Gardnerella. Pt Rx Clidamycin Vaginal cream. No change Renata Nicolas PA-C Discharge - Sign-Out/Discharge Documenting (check all that apply): Patient Departure - D/C home All imaging exams completed and their final reports reviewed: No Studies - Discharge Plan Condition: Stable Disposition: HOME Prescriptions: Clindamycin SUPP (NF) [Cleocin 100 MG SUPP (NF)] 100 mg VAGINAL BEDTIME 5 Days # 5 sup Patient Education Materials: Clindamycin (Into the vagina), Vaginitis (ED), Female Condom Use (ED) Referrals: [facility] [place] [facility] [Outside] No Primary Care Phys,NOPCP [Primary Care Provider] - Additional Instructions: please start vaginal suppositories after your period is over Follow up with your primary care The results of your tests will be ready in 3-4 days - Billing Disposition and Condition Condition: STABLE Disposition: Home
--- NOTE | 2018-04-02 19:05 | UC ---
- Progress Note Progress Note: 04/02/2018 Hep B surface <3.10 no immunity detected. Please notify patient of incidental finding. Advised patient to f/u w/ her PCP or return here to order full Hep B panel and confirm she is not immune. So she can get Hep B Vaccine Thank you Renata Nicolas PA-C Discharge - Sign-Out/Discharge Documenting (check all that apply): Patient Departure - D/C home All imaging exams completed and their final reports reviewed: No Studies - Discharge Plan Condition: Stable Disposition: HOME Prescriptions: Clindamycin SUPP (NF) [Cleocin 100 MG SUPP (NF)] 100 mg VAGINAL BEDTIME 5 Days # 5 sup Patient Education Materials: Clindamycin (Into the vagina), Vaginitis (ED), Female Condom Use (ED) Referrals: [facility] [place] [facility] [Outside] No Primary Care Phys,NOPCP [Primary Care Provider] - Additional Instructions: please start vaginal suppositories after your period is over Follow up with your primary care The results of your tests will be ready in 3-4 days - Billing Disposition and Condition Condition: STABLE Disposition: Home
== END 2018-04-01 22:20 | disposition home or self-care (01) ==
LOC: UCEAST 21:04
DX: Z11.3 Encounter for screening for infections with a predominantly sexual mode of transmission (principal); N76.0 Acute vaginitis; Z88.1 Allergy status to other antibiotic agents; Z91.040 Latex allergy status
CPT/HCPCS: 36415; 81003; 84702; 86592; 86703; 86706; 86803; 87480; 87491; 87510; 87591; 87661; 99212; G0463

== ENCOUNTER 2019-02-03 15:32 | Emergency (ER) | payer MEDICAID, OTHER ==
[2019-02-03 15:48] VITALS: BP 117/64
[2019-02-03] MEDS ORDERED: Ibuprofen TAB* 600 MG PO ONE (16:08)
--- NOTE | 2019-02-03 16:26 | UC ---
Neck Pain HPI - HPI Summary HPI Summary: Patient is a 28yo female presenting with neck pain and stiffness since 7pm last night. Patient states pain came on suddenly when she was walking in the grocery store. She denies any trauma or injury. She described the pain as 10/10 initially but took ibuprofen last night which make it 7/10. Today she rated 5/ 10 but it is worse with movement. She describes the pain as tight and pulling. 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 She has not taken anything today for pain relief. Notes that not moving her head helps the pain. Denies fever, headache, numbness, tingling, and changes in vision. Noted pain in her ears last night but none today. Noted some chest tightness last night which has also resolved today. She has asthma but states she has not had to use her inhaler. Denies history of neck or back trauma. Denies ill contacts. - History of Current Complaint Chief Complaint: UCGeneralIllness Stated Complaint: NECK AND BACK PAIN Time Seen by Provider: 02/03/19 15:49 Hx Obtained From: Patient Hx Last Menstrual Period: doesn't get d/t depo shot Onset/Duration Of Injury/Symptoms: Hours Onset/Duration: Sudden Onset, Lasting Hours Severity: Mild Pain Intensity: 3 Pain Scale Used: 0-10 Numeric Associated Signs & Symptoms: Negative: Swelling, Fever, Weakness, Headache, Paresthesia - Allergies/Home Medications Allergies/Adverse Reactions: Allergies Allergy/AdvReac Type Severity Reaction Status Date / Time Latex, Natural Rubber Allergy Itching Verified 02/03/19 15:48 fluconazole [From Diflucan] AdvReac Vomiting Verified 02/03/19 15:48 PMH/Surg Hx/FS Hx/Imm Hx Respiratory History: Asthma Other History Of: Negative For: HIV, Hepatitis B, Hepatitis C, Anticoagulant Therapy - Surgical History Surgical History: Yes Surgery Procedure, Year, and Place: x2, 2010, [address] [place] [facility] – [place]. polyps removed from uterus [address] - [facility] [place]. RT BREAST BIOPSY [address] - [facility] [place]. ECTOPIC pregnmancy, removed Apr 2017 - Family History Known Family History: Positive: Hypertension, Diabetes, Non-Contributory Negative: Blood Disorder - Social History Alcohol Use: Rare Alcohol Amount: one wine per week Substance Use Type: None Smoking Status (MU): Never Smoked Tobacco Have You Smoked in the Last Year: No - Immunization History Most Recent Influenza Vaccination: not this year Most Recent Tetanus Shot: tetanus is up to date per patient Most Recent Pneumonia Vaccination: never Review of Systems All Other Systems Reviewed And Are Negative: Yes Constitutional: Positive: Negative. Negative: Fever, Chills, Fatigue Eyes: Positive: Negative. Negative: Blurred Vision, Diplopia Respiratory: Positive: Other - chest tightness. Negative: Shortness Of Breath Cardiovascular: Positive: Negative. Negative: Palpitations, Chest Pain Gastrointestinal: Positive: Negative Motor: Positive: Negative. Negative: Weakness Neurovascular: Positive: Negative. Negative: Decreased Sensation Musculoskeletal: Positive: Decreased ROM, Myalgia. Negative: Edema Neurological: Negative: Headache, Paresthesia, Numbness Physical Exam Triage Information Reviewed: Yes Appearance: Well-Appearing, No Pain Distress, Well-Nourished Vital Signs: Initial Vital Signs Temp 97.4 F 02/03/19 15:44 Pulse 63 02/03/19 15:44 Resp 16 02/03/19 15:44 BP 117/64 02/03/19 15:44 Pulse Ox 100 02/03/19 15:44 Vital Signs Reviewed: Yes ENT: Positive: Normal ENT inspection, Hearing grossly normal, Pharynx normal, TMs normal. Negative: Pharyngeal erythema, Nasal drainage, TM bulging, TM red Neck: Positive: Supple, No Lymphadenopathy Respiratory Exam: Normal Respiratory: Positive: Chest non-tender, Lungs clear, Normal breath sounds Cardiovascular Exam: Normal Cardiovascular: Positive: RRR, Pulses Normal Musculoskeletal: Positive: Strength Intact, No Edema, ROM Limited @ - limited ROM of neck extension due to pain. Limited ROM turning head left and right due to pain, Other: - tenderness to palpation of trapezius muscle bilaterally. no midline cervical tenderness. Neurological Exam: Normal, Other - sensation grossly intact Neurological: Positive: Muscle Tone Normal Skin Exam: Normal Neck Pain Course/Dx - Course Course Of Treatment: Discussed with patient to take flexeril as directed for the treatment of her neck muscle spasms. Patient informed not to take before driving or working as it may cause her to be drowsy. Patient may apply heat and continue to take ibuprofen as directed for pain relief. Patient instructed to follow up with her primary care physician or the [facility] if symptoms persist. Patient voiced understanding and agreed to treatment plan. - Differential Dx/Diagnosis Provider Diagnosis: Muscle spasms of neck Discharge ED - Sign-Out/Discharge Documenting (check all that apply): Patient Departure All imaging exams completed and their final reports reviewed: No Studies - Discharge Plan Condition: Stable Disposition: HOME Prescriptions: Cyclobenzaprine TAB* [Flexeril 10 MG TAB*] 10 mg PO TID PRN #9 tab PRN Reason: Spasms - Neck Patient Education Materials: Muscle Spasm (ED), Neck Pain (ED) Forms: *Work Release Referrals: [facility] [Outside] - If Needed Additional Instructions: As discussed, take flexeril as directed for the treatment of your neck muscle spasms. You may apply heat and continue to take ibuprofen as directed for pain relief. If symptoms persist, follow up with you primary care physician or the [facility] as listed below. - Billing Disposition and Condition Condition: STABLE Disposition: Home
== END 2019-02-03 16:35 | disposition home or self-care (01) ==
LOC: UCEAST 15:32
DX: M62.838 Other muscle spasm (principal); Z91.040 Latex allergy status
CPT/HCPCS: 99212; A9270-GY; G0463

== ENCOUNTER 2019-02-17 19:45 | Emergency (ER) | payer MEDICAID ==
[2019-02-17 20:03] VITALS: BP 139/84
[2019-02-17] MEDS ORDERED: Ondansetron ODT TAB* 4 MG PO ONE (20:37)
[2019-02-17] MEDS ORDERED: Ketorolac *IM* INJ* 60 MG/2 ML VIAL IM ONE (20:37)
--- NOTE | 2019-02-17 20:39 | UC ---
Back Pain HPI - HPI Summary HPI Summary: 2 weeks of right posterior shoulder /back/scapula pain no injury----works as a waiter/waitress head ---has been taking ibuprofen and muscle relaxers with out any relief--- -also c/o 3 days of vomiting and diarrhea--- - History of Current Complaint Chief Complaint: UCRespiratory Stated Complaint: cough, AND CHEST CONGESTION Time Seen by Provider: 02/17/19 20:28 Hx Obtained From: Patient Hx Last Menstrual Period: UNK ?: No Onset/Duration: Gradual Onset, Lasting Weeks - 2, Still Present Timing: Constant Pain Intensity: 8 - shoulder/back pain Pain Scale Used: 0-10 Numeric Back Pain: Is Discrete @ - musclepain Character: Aching, Stiffness Aggravating Factor(s): Movement Alleviating Factor(s): Nothing - Allergies/Home Medications Allergies/Adverse Reactions: Allergies Allergy/AdvReac Type Severity Reaction Status Date / Time Latex, Natural Rubber Allergy Itching Verified 02/17/19 20:04 fluconazole [From Diflucan] AdvReac Vomiting Verified 02/17/19 20:04 PMH/Surg Hx/FS Hx/Imm Hx Previously Healthy: Yes Other History Of: Negative For: HIV, Hepatitis B, Hepatitis C, Anticoagulant Therapy - Surgical History Surgical History: Yes Surgery Procedure, Year, and Place: x2, 2010, 2015 [place] [facility] [place] 2013 - [facility] [place]. RT BREAST BIOPSY 2014 [facility] [place]. ECTOPIC pregnmancy, removed Apr 2017 - Family History Known Family History: Positive: Hypertension, Diabetes, Non-Contributory Negative: Blood Disorder - Social History Occupation: Employed Full-time Lives: With Family Alcohol Use: Rare Alcohol Amount: one wine per week Substance Use Type: None Smoking Status (MU): Never Smoked Tobacco Have You Smoked in the Last Year: No - Immunization History Most Recent Influenza Vaccination: not this year Most Recent Tetanus Shot: tetanus is up to date per patient Most Recent Pneumonia Vaccination: never Review of Systems All Other Systems Reviewed And Are Negative: Yes Constitutional: Positive: Negative Skin: Positive: Negative Eyes: Positive: Negative ENT: Positive: Negative Respiratory: Positive: Negative Cardiovascular: Positive: Negative Gastrointestinal: Positive: Abdominal Pain, Vomiting, Diarrhea Genitourinary: Positive: Negative Motor: Positive: Negative Neurovascular: Positive: Negative Musculoskeletal: Positive: Myalgia Neurological: Positive: Negative Psychological: Positive: Negative Is Patient Immunocompromised?: Yes Physical Exam Triage Information Reviewed: Yes Appearance: Well-Appearing, No Pain Distress, Well-Nourished Vital Signs: Initial Vital Signs Temp 98.2 F 02/17/19 19:54 Pulse 75 02/17/19 19:54 Resp 16 02/17/19 19:54 BP 139/84 02/17/19 19:54 Pulse Ox 98 02/17/19 19:54 Vital Signs Reviewed: Yes Eye Exam: Normal Eyes: Positive: Conjunctiva Clear ENT Exam: Normal ENT: Positive: Normal ENT inspection, Hearing grossly normal, Pharynx normal. Negative: Trismus, Muffled voice, Hoarse voice Dental Exam: Normal Neck exam: Normal Neck: Positive: Supple, Nontender, No Lymphadenopathy Respiratory Exam: Normal Respiratory: Positive: Chest non-tender, Lungs clear, Normal breath sounds, No respiratory distress, No accessory muscle use Cardiovascular Exam: Normal Cardiovascular: Positive: RRR, No Murmur, Pulses Normal, Brisk Capillary Refill Abdominal Exam: Normal Abdomen Description: Positive: Nontender, No Organomegaly, Soft. Negative: CVA Tenderness (R), CVA Tenderness (L), Distended, Guarding, Hepatomegaly, McBurney' s Point Tenderness Bowel Sounds: Positive: Present Musculoskeletal Exam: Normal Musculoskeletal: Positive: Strength Intact, ROM Intact, No Edema, Other: - muscular pain tender to palpation right shoulder and upper back Neurological Exam: Normal Neurological: Positive: Alert, Muscle Tone Normal Psychological Exam: Normal Skin Exam: Normal Back Pain Course/Dx - Course Course Of Treatment: advance diet slowly----lidocaine patches for pain will try a different muscle relaxer---follow with pcp this week will also refer to physical therapy - Differential Dx/Diagnosis Provider Diagnosis: Acute viral syndrome, Muscle ache Discharge ED - Sign-Out/Discharge Documenting (check all that apply): Patient Departure All imaging exams completed and their final reports reviewed: No Studies - Discharge Plan Condition: Stable Disposition: HOME Prescriptions: Baclofen TAB* [Lioresal TAB*] 10 mg PO TID #15 tab Meloxicam [Mobic] 7.5 mg PO BID #20 tablet Ondansetron ODT TAB* [Zofran 4 MG Odt TAB*] 4 mg PO Q6H PRN #6 tab.odt PRN Reason: nausea Patient Education Materials: Muscle Strain (ED), Clear Liquid Diet (ED), Musculoskeletal Pain (ED) Forms: *Work Release Referrals: [facility] [Outside] - 2 Days - Billing Disposition and Condition Condition: STABLE Disposition: Home
== END 2019-02-17 21:12 | disposition home or self-care (01) ==
LOC: UCEAST 19:45
DX: B34.9 Viral infection, unspecified (principal); M79.18 Myalgia, other site; R10.9 Unspecified abdominal pain; R11.10 Vomiting, unspecified; R19.7 Diarrhea, unspecified; Z91.040 Latex allergy status; Z88.8 Allergy status to other drugs, medicaments and biological substances
CPT/HCPCS: 96372; 99212; A9270-GY; G0463; J1885

== ENCOUNTER 2019-04-05 07:11 | Emergency (ER) | payer MEDICAID, OTHER ==
[2019-04-05 07:31] VITALS: BP 127/72
--- NOTE | 2019-04-05 07:56 | UC ---
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 THEN WOKE UP WITH LEFT WRIST PAIN WHICH HAS BEEN PERSISTENT. HAS NOTICED SOME SWELLING RECENTLY. COMPLAINS OF INTERMITTENT NUMBNESS/TINGLING IN HER FINGERS. - History Of Current Complaint Chief Complaint: UCUpperExtremity Stated Complaint: WRIST PAIN Time Seen by Provider: 04/05/19 07:36 Hx Obtained From: Patient Hx Last Menstrual Period: states no period Onset/Duration: Gradual Onset, Lasting Weeks, Still Present Severity Initially: Moderate Severity Currently: Moderate Pain Intensity: 0 Pain Scale Used: 0-10 Numeric Character Of Pain: Sharp Aggravating Factor(s): Movement Alleviating Factor(s): Rest Associated Signs And Symptoms: Positive: Swelling, Numbness/Tingling Related History: Dominant Hand Right - Allergies/Home Medications Allergies/Adverse Reactions: Allergies Allergy/AdvReac Type Severity Reaction Status Date / Time Latex, Natural Rubber Allergy Itching Verified 04/05/19 07:23 fluconazole [From Diflucan] AdvReac Vomiting Verified 04/05/19 07:23 Home Medications: Home Medications NK [No Home Medications Reported] 04/05/19 [History Confirmed 04/05/19] PMH/Surg Hx/FS Hx/Imm Hx Respiratory History: Asthma Psychological History: Depression Other History Of: Negative For: HIV, Hepatitis B, Hepatitis C, Anticoagulant Therapy - Surgical History Surgical History: Yes Surgery Procedure, Year, and Place: x2, 2010, 2016 - [facility]. polyps removed from uterus 2013 - [facility]. RT BREAST BIOPSY 2014 - [facility]. ECTOPIC , removed Apr 2017 - Family History Known Family History: Positive: Hypertension, Diabetes, Non-Contributory Negative: Blood Disorder - Social History Alcohol Use: None Alcohol Amount: one wine per week Substance Use Type: None Smoking Status (MU): Never Smoked Tobacco Have You Smoked in the Last Year: No - Immunization History Most Recent Influenza Vaccination: not this year Most Recent Tetanus Shot: tetanus is up to date per patient Most Recent Pneumonia Vaccination: never Review of Systems All Other Systems Reviewed And Are Negative: Yes Constitutional: Positive: Negative Respiratory: Positive: Negative Cardiovascular: Positive: Negative Gastrointestinal: Positive: Negative Musculoskeletal: Positive: Arthralgia, Decreased ROM, Edema Physical Exam Triage Information Reviewed: Yes Appearance: Well-Appearing, No Pain Distress, Well-Nourished Vital Signs: Initial Vital Signs Temp 97.6 F 04/05/19 07:24 Pulse 68 04/05/19 07:24 Resp 16 04/05/19 07:24 BP 127/72 04/05/19 07:24 Pulse Ox 98 04/05/19 07:24 Vital Signs Reviewed: Yes Eyes: Positive: Conjunctiva Clear ENT: Positive: Hearing grossly normal Neck: Positive: Supple Respiratory: Positive: No respiratory distress, No accessory muscle use Cardiovascular: Positive: Pulses Normal Abdomen Description: Positive: Soft Musculoskeletal: Positive: ROM Limited @ - LEFT WRIST, Edema @ - LEFT WRIST, Other: - TTP DIFFUSELY OVER LEFT WRIST. POSITIVE TINEL Neurological: Positive: Alert Psychological: Positive: Age Appropriate Behavior Skin: Negative: Rashes Diagnostics - Radiology LEFT WRIST XRAYS Radiology Interpretation Completed By: Radiologist Summary of Radiographic Findings: Normal radiograph of the left wrist. Hand/Wrist Course/Dx - Differential Dx/Diagnosis Provider Diagnosis: Strain of left wrist Discharge ED - Sign-Out/Discharge Documenting (check all that apply): Patient Departure All imaging exams completed and their final reports reviewed: Yes - Discharge Plan Condition: Stable Disposition: HOME Patient Education Materials: Wrist Sprain (ED) Forms: *Work Release Referrals: Rico Bynum MD [Medical Doctor] - 2 Weeks Additional Instructions: X-RAYS TODAY NEGATIVE FOR FRACTURE OR DISLOCATION OF THE LEFT WRIST. I SUSPECT YOU ARE SUFFERING FROM OVERUSE/SPRAIN. WEAR THE SPLINT WHILE SLEEPING AND DURING THE DAY ABLE. TAKE IBUPROFEN NEEDED FOR DISCOMFORT. REST, ICE, ELEVATE. FOLLOW-UP WITH ORTHOPEDICS IF YOUR SYMPTOMS ARE NOT IMPROVING OVER THE NEXT COUPLE OF WEEKS. - Billing Disposition and Condition Condition: STABLE Disposition: Home
== END 2019-04-05 08:36 | disposition home or self-care (01) ==
LOC: UCEAST 07:11
DX: S66.912A Strain of unspecified muscle, fascia and tendon at wrist and hand level, left hand, initial encounter (principal); J45.909 Unspecified asthma, uncomplicated; Z91.040 Latex allergy status; Z88.1 Allergy status to other antibiotic agents; X58.XXXA Exposure to other specified factors, initial encounter; Y92.9 Unspecified place or not applicable; Y99.0 Civilian activity done for income or pay
CPT/HCPCS: 99212; G0463